=== PATIENT | male | born 1950 | race Caucasian/White ===

== ENCOUNTER → 2017-06-30 12:49 | Outpatient (CLI) | payer OTHER, SELFPAY ==
--- NOTE | 2017-06-30 12:50 | ECHOD_ITS ---
Reason For Study: Pulm. HTN Procedure This was a 2D Doppler, Color Flow transthoracic echocardiogram. Exam performed in department. Left Ventricle Normal size and thickness. The estimated ejection fraction is 65 %. Stage 2 diastolic dysfunction. Septal motion consistent with IVCD. No regional wall motion abnormalities noted. Right Ventricle Normal size and thickness. Normal systolic function. Atria The left atrium is mildly enlarged. Normal right atrium. Normal atrial septum. Mitral Valve The mitral valve is structurally normal. No prolapse or stenosis seen. Trivial mitral valve insufficiency. Tricuspid Valve Normal tricuspid valve. Trivial tricuspid valve insufficiency. Right ventricular systolic pressure estimated to be 32 mmHg. Aortic Valve Trisinus/trileaflet aortic valve. Mild diffuse aortic valve thickening. Mild aortic stenosis. Peak aortic valve gradient 21 mmHg. Mean aortic valve gradient 11 mmHg. Great Vessels Normal aortic root. Normal arch. Normal inferior vena cava. Inferior vena cava collapse with sniff. Pericardium/Pleural No pericardial effusion. MMode/2D Measurements & Calculations LVIDd: 5.1 cm IVSd: 1.2 cm LVOT diam: 2.1 cm LVIDs: 3.1 cm LVPWd: 1.1 cm LVOT area: 3.5 cm2 RVDd: 3.6 cm FS: 38.6 % Ao root diam: 3.4 cm LAV(MOD-bp): 59.5 ml LA dimension: 4.5 cm LAV(MOD-bp) Indexed: 28.2 ml/m2 LA A4 area: 20.9 cm2 LAV(MOD-sp2): 56.1 ml LAV(MOD-sp4): 59.8 ml RA A4 area: 14.9 cm2 Doppler Measurements & Calculations MV E max yefri: 81.2 cm/sec Lat Peak E' Yefri: 7.8 cm/sec Med Peak E' Yefri: 6.1 cm/sec MV A max yefri: 71.0 cm/sec E/E' lat: 10.4 E/E' med: 13.2 MV E/A: 1.1 Ao V2 max: 227.3 cm/sec LV V1 max: 105.1 cm/sec SV(LVOT): 91.3 ml Ao max P.7 mmHg LV V1 max P.4 mmHg Ao V2 mean: 159.4 cm/sec LV V1 mean P.5 mmHg Ao mean P.4 mmHg LV V1 mean: 74.8 cm/sec Ao V2 VTI: 53.1 cm LV V1 VTI: 26.2 cm LORETO(I,D): 1.7 cm2 LORETO(V,D): 1.6 cm2 PA V2 max: 105.1 cm/sec TR max yefri: 249.4 cm/sec TR max P.0 mmHg Interpretation Summary The estimated ejection fraction is 65 %. Stage 2 diastolic dysfunction. The left atrium is mildly enlarged. Trivial mitral valve insufficiency. Trivial tricuspid valve insufficiency. Right ventricular systolic pressure estimated to be 32 mmHg. Mild aortic stenosis. Compared to echo report dated 01/27/2017, no appreciable changes noted. Ordering Physician: Shankar Sears Referring Physician: Mili Talbert M.D. Performed By: Farida Boykin RDCS
== END ==
PROVIDERS: Family Provider Internal Medicine; PCP Internal Medicine; Visit Provider Internal Medicine Cardiovascular Disease
DX: I35.0 Nonrheumatic aortic (valve) stenosis (principal); I10 Essential (primary) hypertension
CPT/HCPCS: 93306

== ENCOUNTER → 2017-12-17 07:43 | Outpatient (CLI) | payer OTHER, SELFPAY ==
[2017-12-17 07:47] LABS: Bacteria 0 SEEN /hpf (None Seen); Mucous, Urine 0 SEEN /hpf (<or=2+); Red Blood Cells-Urine 0 SEEN /hpf (0-5); Squamous Epithelial Cells - UA 0 SEEN /hpf (0-5); White Blood Cells 0 SEEN /hpf (0-5)
[2017-12-17 08:27] LABS: Absolute Lymphocyte Count 2.26 X10^3/ul (0.83-4.51); Absolute Neutrophil Count 3.6 X10^3/uL (2.0-7.7); Basophil# 0.01 X10^3/uL; Basophil% 0.2 % (0-1); Eosinophil# 0.16 X10^3/uL; Eosinophils% 2.5 % (0-5); Hematocrit 45.9 % (40-54); Lymphocyte # 2.26 X10^3/ul (4.0); Lymphocyte % 34.9 % (19-41); Mean Corp Hgb Conc 34.9 g/gl (32-36); Mean Corpuscular Hgb 30.4 pg (27.0-32.0); Mean Corpuscular Volume 87.3 fL (80-94); Mean Platelet Vol. 9.5 fl (6.2-12.0); Monocyte# 0.43 X10^3/uL; Monocyte% 6.6 % (0-10); Neutrophil % 55.5 % (47-70); Platelet Count 134 K/mm3 (150-450); RBC Distribution Width SD 41.2 fl (35.1-43.9); Red Blood Count 5.26 M/mm3 (4.6-6.2); White Blood Count 6.5 K/mm3 (4.4-11.0)
[2017-12-17 08:29] LABS: POSITIVE COUNT NO; POSITIVE DIFFERENTIAL NO; POSITIVE MORPHOLOGY NO
[2017-12-17 08:33] LABS: Color, Urine Yellow (Yellow); Glucose, Dipstick 1000 mg/dl (Normal); Ketone-Dipstick Negative (Negative); Leukocyte Esterase-Dipstick Negative /ul (Negative); Nitrite-Dipstick Negative (Negative); Occult Blood-Urine 25 /ul (Negative); Protein-Dipstick Negative (Negative); Urine Bilirubin Dipstick Negative (Negative); Urine Clarity Clear (Clear); Urine Urobilinogen Normal (Normal)
[2017-12-17 08:50] LABS: Microalbumin,Random Urine 7.4 mg/L (NO RANGE EST.); Microalbumin:Creatinine Ratio 7.4 mg/g CRE (<30 mg/g CRE)
[2017-12-17 09:01] LABS: ALB/GLOB Ratio 0.9 RATIO (0.9-2.4); AST(SGOT) 9 U/L (15-37); Alanine Aminotransfer ALT/SGPT 16 U/L (16-61); Albumin, Serum 3.2 g/dL (3.2-5.0); Alkaline Phosphatase 72 U/L (45-117); Anion Gap 9 (5-15); BUN 16 mg/dL (7-18); BUN/Creat Ratio 24.6 RATIO (10-20); Calcium,Total 8.4 mg/dL (8.5-10.1); Chloride 107 mmol/L (98-107); Cholesterol 167 mg/dL (200); Creatinine, Serum 0.65 mg/dL (0.70-1.30); EST Glomerular Filtration Rate 130 mL/min (>60); Est Glom Filt Rate - Afr Amer 158 mL/min (>60); Globulin 3.5 g/dL (2.2-4.2); Glucose 121 mg/dL (74-106); High Density Lipoprotein 31 mg/dL; Potassium 4.2 mmol/L (3.5-5.1); Protein, Total 6.7 g/dL (6.4-8.2); Sodium Level 142 mmol/L (136-145); Thyroid Stim Hormone (TSH) 1.76 uIU/mL (0.358-3.74); Triglycerides 224 mg/dL; Very Low Density Lipoprotein 45 mg/dL (5-40)
[2017-12-19 10:01] LABS: Vitamin D,25 Hydroxy 47.7 ng/mL (29.95-100.01)
== END ==
PROVIDERS: Family Provider Internal Medicine; PCP Internal Medicine; Visit Provider Internal Medicine
DX: E55.9 Vitamin D deficiency, unspecified (principal); E78.5 Hyperlipidemia, unspecified; I10 Essential (primary) hypertension; E11.65 Type 2 diabetes mellitus with hyperglycemia
CPT/HCPCS: 36415; 80053; 80061; 81001; 82043; 82306; 82570; 84443; 85025

== ENCOUNTER → 2018-04-22 08:25 | Outpatient (CLI) | payer OTHER, SELFPAY ==
[2017-06-09 16:11] VITALS: BMI 30.8
[2018-04-22 08:33] LABS: Bacteria 0 SEEN /hpf (None Seen); Mucous, Urine 0 SEEN /hpf (<or=2+); Red Blood Cells-Urine 0 SEEN /hpf (0-5); Squamous Epithelial Cells - UA 0 SEEN /hpf (0-5); White Blood Cells 0 SEEN /hpf (0-5)
[2018-04-22 09:38] LABS: Color, Urine Yellow (Yellow); Glucose, Dipstick 1000 mg/dl (Normal); Ketone-Dipstick Negative (Negative); Leukocyte Esterase-Dipstick Negative /ul (Negative); Nitrite-Dipstick Negative (Negative); Occult Blood-Urine Negative /ul (Negative); Protein-Dipstick Negative (Negative); Specific Gravity, Urine 1.015 (1.002-1.030); Urine Bilirubin Dipstick Negative (Negative); Urine Clarity Clear (Clear); Urine Urobilinogen Normal (Normal)
[2018-04-22 09:40] LABS: Absolute Lymphocyte Count 2.01 X10^3/ul (0.83-4.51); Absolute Neutrophil Count 3.8 X10^3/uL (2.0-7.7); Basophil# 0.02 X10^3/uL; Basophil% 0.3 % (0-1); Eosinophil# 0.17 X10^3/uL; Eosinophils% 2.7 % (0-5); Hematocrit 46.7 % (40-54); Hemoglobin 15.7 g/dl (13.0-16.5); Lymphocyte # 2.01 X10^3/ul (4.0); Lymphocyte % 31.5 % (19-41); Mean Corp Hgb Conc 33.6 g/gl (32-36); Mean Corpuscular Hgb 29.8 pg (27.0-32.0); Mean Corpuscular Volume 88.8 fL (80-94); Mean Platelet Vol. 9.7 fl (6.2-12.0); Monocyte# 0.34 X10^3/uL; Monocyte% 5.3 % (0-10); Neutrophil # 3.81 X10^3/uL (2.7-7.7); Neutrophil % 59.7 % (47-70); Platelet Count 149 K/mm3 (150-450); RBC Distribution Width CV 12.9 % (11.6-14.6); RBC Distribution Width SD 41.1 fl (35.1-43.9); Red Blood Count 5.26 M/mm3 (4.6-6.2); White Blood Count 6.4 K/mm3 (4.4-11.0)
[2018-04-22 09:42] LABS: POSITIVE COUNT NO; POSITIVE DIFFERENTIAL NO; POSITIVE MORPHOLOGY NO
[2018-04-22 10:06] LABS: Microalbumin,Random Urine 5.9 mg/L (NO RANGE EST.); Microalbumin:Creatinine Ratio 7.3 mg/g CRE (<30 mg/g CRE)
[2018-04-22 10:37] LABS: AST(SGOT) 7 U/L (15-37); Alanine Aminotransfer ALT/SGPT 16 U/L (16-61); Albumin, Serum 3.3 g/dL (3.2-5.0); Alkaline Phosphatase 72 U/L (45-117); Anion Gap 8 (5-15); BUN 16 mg/dL (7-18); BUN/Creat Ratio 25.1 RATIO (10-20); Calcium,Total 8.3 mg/dL (8.5-10.1); Chloride 105 mmol/L (98-107); Creatinine, Serum 0.64 mg/dL (0.70-1.30); EST Glomerular Filtration Rate 133 mL/min (>60); Est Glom Filt Rate - Afr Amer 161 mL/min (>60); Globulin 3.4 g/dL (2.2-4.2); Glucose 129 mg/dL (74-106); Potassium 4.1 mmol/L (3.5-5.1); Protein, Total 6.7 g/dL (6.4-8.2); Sodium Level 140 mmol/L (136-145); Thyroid Stim Hormone (TSH) 1.32 uIU/mL (0.358-3.74)
[2018-04-22 13:20] LABS: Vitamin D,25 Hydroxy 52.7 ng/mL (29.95-100.01)
[2018-04-25 12:07] LABS: CHOLESTEROL TOTAL 172 mg/dL (100-199); HDL-C 31 mg/dL (>39); HDL-P TOTAL 23.2 umol/L (>=30.5); SMALL LDL-P 1222 nmol/L (<=527); TRIGLYCERIDES 194 mg/dL (0-149)
[2018-04-27 09:37] LABS: LDL-C 102 mg/dL (0-99)
[2018-04-27 09:38] LABS: LDL SIZE 19.9 nm (>20.5); LDL-P 1770 nmol/L (<1000); LP-IR SCORE ** 77 (<=45)
== END ==
PROVIDERS: Family Provider Internal Medicine; PCP Internal Medicine; Referring Provider Internal Medicine; Visit Provider Internal Medicine
DX: I10 Essential (primary) hypertension (principal); E55.9 Vitamin D deficiency, unspecified; E78.5 Hyperlipidemia, unspecified; E11.65 Type 2 diabetes mellitus with hyperglycemia
CPT/HCPCS: 36415; 80053; 80061; 81001; 82043; 82306; 82570; 83704; 84443; 85025

== ENCOUNTER → 2018-09-15 | Outpatient (CLI) | payer OTHER, SELFPAY ==
[2018-09-01 11:43] VITALS: BMI 31.1
--- NOTE | 2018-09-15 12:48 | STEWCON_ITS ---
Reason For Study: Pre-Operative Stress Results Protocol: Stanley Protocol Maximum Predicted HR: 153 bpm Target HR: 130 bpm % Maximum Predicted HR: 89 % DurationHeart Rate Stage (mm:ss) (bpm) BP Comment Baseline 68 158/90No Chest Pain; Diluted Definity 3 ML Given Stanley Protocol Stage I 3:00 99 166/88No Chest Pain Stanley Protocol Stage II 3:00 122 170/84No Chest Pain; Mild Dyspnea Stanley Protocol Stage III 1:30 136 / No Chest Pain; Mild to Moderate Dyspnea Recovery 79 150/82No Chest Pain Stress Duration: 7:30 mm:ss Maximum Stress HR: 136 bpm METS: 10 Baseline Echocardiogram Findings The estimated ejection fraction is 65 %. Stress Echo Wall motion Data Resting WM Intermediate WM Stress WM Resting Wall Motion Wall Motion Stress No regional wall motion No regional wall motion abnormalities noted. abnormalities noted. EKG Data The baseline ECG displays normal sinus rhythm. The patient exercised according to the regular Stanley protocol for a total duration of 7:30. The maximum heart rate attained was 137 beats per minute. This was 89% of maximum predicted heart rate. The patient exercised into stage 3 of the Stanley protocol. During stress, there were no ST or T wave changes noted to suggest ischemia. No clinical angina was noted. Interpretation Summary The estimated ejection fraction is 65 %. Normal, adequate, treadmill echocardiogram. Negative for ischemia by EKG and echocardiographic criteria. No anginal symptoms noted. Rare PVC noted. Appropriate blood pressure response to exercise. Average exercise capacity for age. Final LVEF is 75%. Test terminated due to leg discomfort. Decreased sensitivity due to poor echo windows requiring Definity enhancing agent. No complications. The study was technically difficult. Contrast injection was performed. Ordering Physician: Shankar Sears Referring Physician: Mili Talbert Performed By: Levon Emanuel RCS
== END | disposition home or self-care (01) ==
LOC: CVS 12:47
PROVIDERS: Family Provider Internal Medicine; PCP Internal Medicine; Referring Provider Internal Medicine Cardiovascular Disease; Visit Provider Internal Medicine Cardiovascular Disease
DX: Z01.810 Encounter for preprocedural cardiovascular examination (principal); R94.31 Abnormal electrocardiogram [ECG] [EKG]; I35.0 Nonrheumatic aortic (valve) stenosis; E78.5 Hyperlipidemia, unspecified; I10 Essential (primary) hypertension; G47.33 Obstructive sleep apnea (adult) (pediatric); F17.200 Nicotine dependence, unspecified, uncomplicated; E66.9 Obesity, unspecified
CPT/HCPCS: 93017; 93350; Q9957; A4216; C8928

== ENCOUNTER → 2018-09-21 | Outpatient (CLI) | payer OTHER, SELFPAY ==
[2018-09-01 11:43] VITALS: BMI 31.1
--- NOTE | 2018-09-21 13:21 | ECHOD_ITS ---
Reason For Study: PRE-OP Procedure This was a 2D Doppler, Color Flow transthoracic echocardiogram. Exam performed in department. Left Ventricle Normal size and thickness. The estimated ejection fraction is 65 %. Septal motion consistent with IVCD. Normal diastology for age. No regional wall motion abnormalities noted. Right Ventricle Mildly dilated right ventricle. Normal systolic function. Atria Normal left atrium. Normal right atrium. Normal atrial septum. Mitral Valve The mitral valve is structurally normal. No prolapse or stenosis seen. Tricuspid Valve Normal tricuspid valve. Mild (1+) tricuspid valve insufficiency. Right ventricular systolic pressure estimated to be 34 mmHg. Aortic Valve Trisinus/trileaflet aortic valve. Mild diffuse aortic valve thickening. Mild aortic stenosis. Peak aortic valve gradient 20 mmHg. Mean aortic valve gradient 10 mmHg. Calculated aortic valve area (continuity equation) is 1.3 cm2. Pulmonic Valve Normal pulmonic valve. Great Vessels Normal aortic root. Normal arch. Normal inferior vena cava. Inferior vena cava collapse with sniff. Pericardium/Pleural No pericardial effusion. MMode/2D Measurements & Calculations LVIDd: 5.2 cm IVSd: 1.1 cm LVOT diam: 2.0 cm LVIDs: 3.3 cm LVPWd: 1.2 cm LVOT area: 3.2 cm2 RVDd: 4.3 cm FS: 36.9 % Ao root diam: 3.4 cm LAV(MOD-bp): 54.4 ml Aortic Valve Planimetry: 1.3 cm2 LAV(MOD-bp) Indexed: 25.9 ml/m2 LAV(MOD-sp2): 62.0 ml LAV(MOD-sp4): 47.8 ml LA dimension(2D): 4.5 cm LA A4 area: 18.0 cm2 RA A4 area: 14.9 cm2 Time Measurements MV dec time: 0.19 sec Doppler Measurements & Calculations MV E max yefir: 86.1 cm/sec Lat Peak E' Yefri: 9.4 cm/sec Med Peak E' Yefri: 5.9 cm/sec MV A max yefri: 71.6 cm/sec E/E' lat: 9.1 E/E' med: 14.7 MV E/A: 1.2 Ao V2 max: 225.2 cm/sec LV V1 max: 84.6 cm/sec SV(LVOT): 63.6 ml Ao max P.3 mmHg LV V1 max P.9 mmHg Ao V2 mean: 154.9 cm/sec LV V1 mean P.7 mmHg Ao mean P.7 mmHg LV V1 mean: 61.7 cm/sec Ao V2 VTI: 49.5 cm LV V1 VTI: 20.0 cm LORETO(I,D): 1.3 cm2 LORETO(V,D): 1.2 cm2 TR max yefri: 258.2 cm/sec TR max P.7 mmHg Interpretation Summary The estimated ejection fraction is 65 %. Normal diastology for age. Mildly dilated right ventricle. Mild (1+) tricuspid valve insufficiency. Right ventricular systolic pressure estimated to be 34 mmHg. Mild aortic stenosis. Compared to echo report dated 06/30/17, no appreciable changes noted. Ordering Physician: Shankar Sears Referring Physician: ROXY MATHEWS Performed By: Kaci Parker RDCS, RVT
== END | disposition home or self-care (01) ==
LOC: CVS 13:20
PROVIDERS: Family Provider Internal Medicine; PCP Internal Medicine; Referring Provider Internal Medicine Cardiovascular Disease; Visit Provider Internal Medicine Cardiovascular Disease
DX: Z01.810 Encounter for preprocedural cardiovascular examination (principal); I35.0 Nonrheumatic aortic (valve) stenosis; I10 Essential (primary) hypertension; R94.31 Abnormal electrocardiogram [ECG] [EKG]
CPT/HCPCS: 93306

== ENCOUNTER → 2018-10-21 | Outpatient (CLI) | payer OTHER, SELFPAY ==
[2018-09-01 11:43] VITALS: BMI 31.1
[2018-10-21 11:01] LABS: Hematocrit 45.1 % (40-54); Hemoglobin 16.1 g/dl (13.0-16.5); Mean Corp Hgb Conc 35.7 g/gl (32-36); Mean Corpuscular Hgb 30.1 pg (27.0-32.0); Mean Corpuscular Volume 84.3 fL (80-94); Mean Platelet Vol. 9.7 fl (6.2-12.0); Platelet Count 143 K/mm3 (150-450); RBC Distribution Width CV 13.1 % (11.6-14.6); RBC Distribution Width SD 40.4 fl (35.1-43.9); Red Blood Count 5.35 M/mm3 (4.6-6.2); Scan Indicated on CBC? Y/N NO; White Blood Count 6.2 K/mm3 (4.4-11.0)
[2018-10-21 11:21] LABS: Anion Gap 5 (5-15); BUN 13 mg/dL (7-18); BUN/Creat Ratio 18.2 RATIO (10-20); Calcium,Total 8.6 mg/dL (8.5-10.1); Chloride 106 mmol/L (98-107); Creatinine, Serum 0.72 mg/dL (0.70-1.30); EST Glomerular Filtration Rate 116 mL/min (>60); Est Glom Filt Rate - Afr Amer 141 mL/min (>60); Glucose 142 mg/dL (74-106); Sodium Level 139 mmol/L (136-145)
[2018-10-21 11:28] LABS: Hemoglobin A1c 6.8 % (4.2-6.3)
== END | disposition home or self-care (01) ==
LOC: LAB 10:08
PROVIDERS: Family Provider Internal Medicine; PCP Internal Medicine; Referring Provider Physician Assistant; Visit Provider Physician Assistant
DX: Z01.818 Encounter for other preprocedural examination (principal); Z01.810 Encounter for preprocedural cardiovascular examination; E11.9 Type 2 diabetes mellitus without complications
CPT/HCPCS: 36415; 80048; 83036; 85027

== ENCOUNTER 2018-12-22 05:41 | Emergency (ER) | payer OTHER, SELFPAY ==
[2018-09-01 11:43] VITALS: BMI 31.1
[2018-12-22 05:42] VITALS: BP 173/94; PULSE 62; RESP 17; TEMP 36.6; O2SAT 93; BMI 31.3
[2018-12-22 06:01] LABS: Bedside Glucose 163 mg/dL (70-110)
--- NOTE | 2018-12-22 06:04 | EKG12_ITS ---
Test Reason : DYSRHYTHMIA Blood Pressure : / mmHG Vent. Rate : 062 BPM Atrial Rate : 062 BPM P-R Int : 162 ms QRS Dur : 154 ms QT Int : 472 ms P-R-T Axes : 041 -66 -03 degrees QTc Int : 479 ms Normal sinus rhythm Left axis deviation Right bundle branch block Abnormal ECG Confirmed by YUE CHIN, ADALBERTO ([id number]), image editor LYNDSAY KINSEY ([id number]) on 12/26/2018 12:09:46 PM Referred By: ARDEN Confirmed By:JOSE RAUL TURNER MD
--- NOTE | 2018-12-22 06:04 | CT_ITS ---
STUDY: CT BRAIN WITHOUT CONTRAST REASON FOR EXAM: Male, 68 years old. DIZZINESS AND NAUSEA THIS AM RADIATION DOSAGE (If Supplied By Facility): CTDIvol = ( 44.99 ) mGy, DLP = ( 779.24 ) mGycm TECHNIQUE: Transaxial CT imaging of the brain was performed without administration of intravenous contrast material. Individualized dose optimization techniques were used for this CT. COMPARISON: No relevant priors. FINDINGS: Normal soft tissue structures. Normal calvarium. Normal size ventricles and extra-axial spaces for the patient's age. Normal white matter tracts of the cerebral hemispheres. Normal basal ganglia and thalami. Normal brainstem. Normal cerebellum. There is no intracranial hemorrhage. There are no findings of an acute ischemic infarction. Normal visualized paranasal sinuses. CT/Brain/Head without Contrast IMPRESSION: Normal unenhanced CT scan of the brain. Electronically Signed: Tobias Lewis, at 6:29 EDT Tel , Service support ,
--- NOTE | 2018-12-22 06:04 | ED.VIS.GEN ---
History of Present Illness Chief Complaint: Dizziness Narrative: Patient is a 68-year-old male who presents with dizziness. Symptoms just began this morning a couple of hours ago. He states he feels like the room is spinning and had difficulty walking because of this. He also reports nausea without vomiting. He denies any headache chest pain difficulty breathing. He denies any near syncope. No other neurological symptoms such as slurred speech or speech difficulty, numbness tingling or weakness in the extremities. He has no history of prior similar symptoms. He did have a recent URI-like illness with congestion and rhinorrhea about 1 week ago. No visual changes. No tinnitus. Has history of coronary disease or stroke but does have a history of diabetes, hypertension, hyperlipidemia. Past Medical History - Allergies and Home Meds Allergies/Adverse Reactions: Allergies No Known Allergies Allergy (Verified 12/22/18 05:47) Primary Care Physician: Mili Talbert DO [Primary Care Provider] - Past Medical History: - - Diabetes, hypertension, hyperlipidemia Smoking Status: Current every day smoker Review of Systems All systems negative except as indicated General: Denies: Fever Cardiovascular: Denies: Chest pain Respiratory: Denies: Dyspnea Gastrointestinal: Reports: Nausea. Denies: Abdominal pain, Vomiting Neurological: Reports: - - Vertigo. Denies: Headache Physical Exam Vital Signs/Narrative: Vital Signs Temp Pulse Resp BP Pulse Ox 12/22/18 05:42 97.9 F 62 17 173/94 H 93 Inital Vital Signs reviewed: Yes General: Well nourished, Well developed Head: Normocephalic, Atraumatic Eyes: Perrl, EOMI, - - No nystagmus ENT: Moist mucous membranes Neck: Supple Cardiovascular: Regular rate, Regular rhythm Respiratory: No distress, CTA bilaterally Abdomen: Soft, Nontender Skin: Normal color Neurological: Alert, Oriented x3, Normal Strength, Normal Sensation, - - No focal or lateralizing neurological deficits normal strength normal sensation no ataxia Psychological: Normal affect Diagnostic/Tx/Re-eval - Medical Decision Making Work-up as above unremarkable with normal labs and negative CT. Patient was treated here with meclizine. On ambulation he feels much better and was able to ambulate without difficulty. His presentation is most suggestive of peripheral vertigo. He was given a prescription for Antivert. He understands to return for new or worsening symptoms. All questions answered bedside. Patient discharged. ED Disposition - Plan for ED Patient: Disposition: Home or Assisted Living Diagnosis: Vertigo Instructions: VERTIGO, Unspecified Prescriptions: Meclizine HCl [Antivert] 25 mg PO 4X/DAY PRN PRN #20 tab PRN Reason: Dizziness Prescription Printed Referrals: Mili Talbert DO [Primary Care Provider] -
[2018-12-22] MEDS: Meclizine HCl 25 MG Tablet PO (06:15)
[2018-12-22 06:19] LABS: Absolute Neutrophil Count 3.9 X10^3/uL (2.0-7.7); Basophil# 0.02 X10^3/uL; Basophil% 0.3 % (0-1); Eosinophil# 0.13 X10^3/uL; Hematocrit 47.1 % (40-54); Hemoglobin 16.3 g/dL (13.0-16.5); Lymphocyte % 29.8 % (19-41); Mean Corp Hgb Conc 34.6 g/dL (32-36); Mean Corpuscular Hgb 30.3 pg (27.0-32.0); Mean Corpuscular Volume 87.5 fL (80-94); Mean Platelet Vol. 9.3 fl (6.2-12.0); Monocyte% 6.3 % (0-10); NRBC Flagged by Analyzer 0 % (0-5); Neutrophil # 3.88 X10^3/uL (2.7-7.7); Neutrophil % 60.8 % (47-70); Platelet Count 143 K/mm3 (150-450); RBC Distribution Width CV 12.5 % (11.6-14.6); RBC Distribution Width SD 39.7 fl (35.1-43.9); Red Blood Count 5.38 M/mm3 (4.6-6.2); White Blood Count 6.4 K/mm3 (4.4-11.0)
[2018-12-22 06:35] LABS: Anion Gap 7 (5-15); BUN 19 mg/dL (7-18); Calcium,Total 8.9 mg/dL (8.5-10.1); Chloride 105 mmol/L (98-107); Creatinine, Serum 0.76 mg/dL (0.70-1.30); EST Glomerular Filtration Rate 109 mL/min (>60); Est Glom Filt Rate - Afr Amer 132 mL/min (>60); Estimated Creatinine Clearance 71.68 ml/min; Glucose 153 mg/dL (74-106); Sodium Level 139 mmol/L (136-145)
[2018-12-22 06:55] VITALS: BP 139/77; PULSE 56; RESP 18; O2SAT 96
== END 2018-12-22 07:00 | disposition home or self-care (01) ==
PROVIDERS: Emergency Provider Emergency Medicine; Family Provider Internal Medicine; PCP Internal Medicine
DX: R42 Dizziness and giddiness (principal); E11.9 Type 2 diabetes mellitus without complications; I10 Essential (primary) hypertension; E78.5 Hyperlipidemia, unspecified; Z79.82 Long term (current) use of aspirin; Z79.84 Long term (current) use of oral hypoglycemic drugs; Z79.899 Other long term (current) drug therapy; F17.200 Nicotine dependence, unspecified, uncomplicated
CPT/HCPCS: 70450; 80048; 82962; 84484; 85025; 93005; 99284

== ENCOUNTER 2019-01-05 09:30 | Outpatient (RCR) | payer OTHER, SELFPAY ==
--- NOTE | 2018-12-27 09:21 | HP.PTEVAL_ITS ---
Patient's Visit Information MARIBEL RAMIREZ is a 68 year old M referred to Physical Therapy by Mili Talbert DO with a diagnosis of BPV. Date of Evaluation: 12/27/18 Physical Therapist: Kishor García, SHAMART, OCS, CSCS - Visit Plan Frequency: 1x/Week Duration: 4-6 Weeks Plan: weekly x 4-6 as needed for progression of adapataion and habituation ex. - Subjective Findings: Got dizzy last Tuesday morning upon waking at 4:30 and spinning and nauseous. Could not walk. Went to ER. Catscan was clear. They said he had an inner ear infection. Put on meds for dizzyness meclizine. Takes it as needed. Took it over the weekend . [place] Tuesday morning until an hour of work and his head felt wierd and he went to Dr. Talbert after leaving work. Off work now days to a month. 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 Sleeping well now. 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 Stopped and sat and got better. Worked 45 minutes at a time. Feels normal in between episodes. Balance is good, no falls and feels pretty steady unless turns too quick. - Objective Walk and trasnfers I and good. - B hallpike mason, - roll test. c/s aROM WFL and without pain. UE AROM WFL. Oculomotor: no nystagmus with gaze or head shake. - skew eye deviation. - ocular tilt. normal convergence. pursuit adn saccades normal, slight symptoms with saccades. VOR horiz 30 sec 5/10 symptoms for 3-4 minutes. - head thrust B - Balance Scores Functional Gait Assessment Score: 30 % Disability: 0 CATSIB Score (Max score 120 seconds): 120 - Goals Goal 1:: Patient feel 100% back to normal at homewith out dizzyness. 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 Rehabilitation Potential: Good - Anticipated Interventions Patient/Client Instruction: Educate patient on: Condition, Plan of Care For the Purpose of:: To increase tolerance to activity/condition/position, To improve ability of physical actions for home/community/work/leisure Comment: adaptation and habituation For the Purpose of:: To increase tolerance to activity/condition/position, To improve ability of physical actions for home/community/work/leisure Thank you for the opportunity to evaluate your patient. For Medicare and Medicare HMO plans, please review the plan of care and approve it. It will need to be FAXED BACK to us at [phone] for Medicare purposes. For Medicare only, by signing this I certify the plan of care. Please let me know if there are questions or concerns regarding this plan of care. Physician Signature: Date:
--- NOTE | 2019-02-16 15:02 | HP.PT.NRP ---
HP - Discharge Summary (1) - Patient Information MARIBEL RAMIREZ was seen in my office for initial evaluation on 12/27/18. The following Plan of Care was established for this patient: Initial Frequency: 1x/Week Initial Duration: 4-6 Weeks - Anticipated Interventions Patient/Client Instruction: Educate patient on: Condition, Plan of Care For the Purpose of:: To increase tolerance to activity/condition/position, To improve ability of physical actions for home/community/work/leisure For the Purpose of:: To increase tolerance to activity/condition/position, To improve ability of physical actions for home/community/work/leisure This patient was last seen in our office 01/05/19. Pertinent comments regarding their Physical therapy will appear below: Pt seen 2 visits for positional vertigo treatment and was 80% better!He was to f/u two weeks later to ensure progress but neglected to attend or schedule. At this point, it has been over 5 weeks adn I will discontinue due to nonattendance. At this point I will be discontinuing this patient from physical therapy. I would be happy to see this patient again in the future if found appropriate by the physician. Thank you! Kishor García, DPT, OCS, CSCS
== END 2019-01-05 19:00 | disposition home or self-care (01) ==
LOC: PT 09:30
PROVIDERS: Family Provider Internal Medicine; PCP Internal Medicine; Referring Provider Internal Medicine; Visit Provider Internal Medicine
DX: H81.10 Benign paroxysmal vertigo, unspecified ear (principal)
CPT/HCPCS: 97162; 97530

== ENCOUNTER → 2019-11-17 07:04 | Outpatient (CLI) | payer BC, SELFPAY ==
[2019-11-17 07:14] LABS: Bacteria 0 SEEN /hpf (None Seen); Mucous, Urine 0 SEEN /hpf (<or=2+); Red Blood Cells-Urine 0 SEEN /hpf (0-5); Squamous Epithelial Cells - UA 0 SEEN /hpf (0-5); White Blood Cells 0 SEEN /hpf (0-5)
[2019-11-17 07:51] LABS: Absolute Lymphocyte Count 2.24 X10^3/uL (0.83-4.51); Absolute Neutrophil Count 3.7 X10^3/uL (2.0-7.7); Basophil# 0.02 X10^3/uL; Basophil% 0.3 % (0-1); Eosinophil# 0.18 X10^3/uL; Eosinophils% 2.7 % (0-5); Hematocrit 47.2 % (40-54); Lymphocyte # 2.24 X10^3/ul (4.0); Mean Corp Hgb Conc 33.9 g/dL (32-36); Mean Corpuscular Hgb 30.2 pg (27.0-32.0); Mean Corpuscular Volume 89.2 fL (80-94); Mean Platelet Vol. 9.8 fl (6.2-12.0); Monocyte# 0.45 X10^3/uL; Monocyte% 6.8 % (0-10); NRBC Flagged by Analyzer 0 % (0-5); Neutrophil # 3.66 X10^3/uL (2.7-7.7); Neutrophil % 55.7 % (47-70); Platelet Count 150 K/mm3 (150-450); RBC Distribution Width CV 12.7 % (11.6-14.6); RBC Distribution Width SD 41.6 fl (35.1-43.9); Red Blood Count 5.29 M/mm3 (4.6-6.2); White Blood Count 6.6 K/mm3 (4.4-11.0)
[2019-11-17 08:16] LABS: Microalbumin,Random Urine 5.6 mg/L (NO RANGE EST.); Microalbumin:Creatinine Ratio 6.4 mg/g CRE (<30 mg/g CRE)
[2019-11-17 08:20] LABS: Color, Urine Yellow (Yellow); Glucose, Dipstick 1000 mg/dl (Normal); Ketone-Dipstick Negative (Negative); Leukocyte Esterase-Dipstick Negative /ul (Negative); Nitrite-Dipstick Negative (Negative); Occult Blood-Urine 10 /ul (Negative); Protein-Dipstick Negative (Negative); Specific Gravity, Urine 1.015 (1.002-1.030); Urine Bilirubin Dipstick Negative (Negative); Urine Clarity Clear (Clear); Urine Urobilinogen Normal (Normal); Urine pH 6.5 (5.0 - 8.0)
[2019-11-17 08:32] LABS: AST(SGOT) 10 U/L (15-37); Alanine Aminotransfer ALT/SGPT 18 U/L (16-61); Albumin, Serum 3.5 g/dL (3.2-5.0); Alkaline Phosphatase 72 U/L (45-117); Anion Gap 3 (5-15); BUN 17 mg/dL (7-18); BUN/Creat Ratio 24.1 RATIO (10-20); Calcium,Total 8.7 mg/dL (8.5-10.1); Chloride 103 mmol/L (98-107); Cholesterol 192 mg/dL (200); EST Glomerular Filtration Rate 118 mL/min (>60); Est Glom Filt Rate - Afr Amer 143 mL/min (>60); Globulin 3.5 g/dL (2.2-4.2); Glucose 154 mg/dL (74-106); High Density Lipoprotein 34 mg/dL; PSA,Total - Annual Screen 1.17 ng/mL (0.00-4.00); Potassium 4.1 mmol/L (3.5-5.1); Sodium Level 138 mmol/L (136-145); Thyroid Stim Hormone (TSH) 1.91 uIU/mL (0.358-3.74); Triglycerides 247 mg/dL; Very Low Density Lipoprotein 49 mg/dL (5-40)
[2019-11-19 10:31] LABS: Vitamin D,25 Hydroxy 59.4 ng/mL
== END ==
PROVIDERS: PCP Internal Medicine; Referring Provider Internal Medicine; Visit Provider Internal Medicine
DX: E55.9 Vitamin D deficiency, unspecified (principal); E78.5 Hyperlipidemia, unspecified; I10 Essential (primary) hypertension; Z12.5 Encounter for screening for malignant neoplasm of prostate
CPT/HCPCS: 36415; 80053; 80061; 81001; 82043; 82306; 82570; 84153; 84443; 85025; G0103

== ENCOUNTER → 2020-06-28 08:26 | Outpatient (CLI) | payer BC, SELFPAY ==
[2020-06-28 08:41] LABS: Bacteria 0 SEEN /hpf (None Seen); Mucous, Urine 0 SEEN /hpf (<or=2+); Red Blood Cells-Urine 0 SEEN /hpf (0-5); Squamous Epithelial Cells - UA 0 SEEN /hpf (0-5); White Blood Cells 0 SEEN /hpf (0-5)
[2020-06-28 09:14] LABS: Color, Urine Yellow (Yellow); Glucose, Dipstick 1000 mg/dl (Normal); Ketone-Dipstick Negative (Negative); Leukocyte Esterase-Dipstick Negative /ul (Negative); Nitrite-Dipstick Negative (Negative); Occult Blood-Urine 25 /ul (Negative); Protein-Dipstick Negative (Negative); Urine Bilirubin Dipstick Negative (Negative); Urine Clarity Clear (Clear); Urine Urobilinogen Normal (Normal)
[2020-06-28 09:21] LABS: Absolute Lymphocyte Count 2.13 X10^3/uL (0.83-4.51); Absolute Neutrophil Count 3.5 X10^3/uL (2.0-7.7); Basophil# 0.02 X10^3/uL; Basophil% 0.3 % (0-1); Eosinophil# 0.14 X10^3/uL; Eosinophils% 2.2 % (0-5); Hematocrit 48.3 % (40-54); Hemoglobin 16.5 g/dL (13.0-16.5); Lymphocyte # 2.13 X10^3/ul (4.0); Lymphocyte % 33.9 % (19-41); Mean Corp Hgb Conc 34.2 g/dL (32-36); Mean Corpuscular Hgb 30.3 pg (27.0-32.0); Mean Corpuscular Volume 88.6 fL (80-94); Mean Platelet Vol. 9.7 fl (6.2-12.0); Monocyte# 0.42 X10^3/uL; Monocyte% 6.7 % (0-10); NRBC Flagged by Analyzer 0 % (0-5); Neutrophil # 3.52 X10^3/uL (2.7-7.7); Neutrophil % 56.1 % (47-70); Platelet Count 156 K/mm3 (150-450); RBC Distribution Width CV 12.7 % (11.6-14.6); RBC Distribution Width SD 41.3 fl (35.1-43.9); Red Blood Count 5.45 M/mm3 (4.6-6.2); White Blood Count 6.3 K/mm3 (4.4-11.0)
[2020-06-28 09:41] LABS: AST(SGOT) 6 U/L (15-37); Alanine Aminotransfer ALT/SGPT 15 U/L (16-61); Albumin, Serum 3.4 g/dL (3.2-5.0); Alkaline Phosphatase 71 U/L (45-117); Anion Gap 3 (5-15); BUN 16 mg/dL (7-18); BUN/Creat Ratio 20.9 RATIO (10-20); Calcium,Total 8.6 mg/dL (8.5-10.1); Chloride 106 mmol/L (98-107); Cholesterol 186 mg/dL (200); Creatinine, Serum 0.77 mg/dL (0.70-1.30); EST Glomerular Filtration Rate 107 mL/min (>60); Est Glom Filt Rate - Afr Amer 130 mL/min (>60); Globulin 3.5 g/dL (2.2-4.2); Glucose 135 mg/dL (74-106); High Density Lipoprotein 35 mg/dL; Microalbumin,Random Urine 18.9 mg/L (NO RANGE EST.); Microalbumin:Creatinine Ratio 12.7 mg/g CRE (<30 mg/g CRE); Potassium 4.2 mmol/L (3.5-5.1); Protein, Total 6.9 g/dL (6.4-8.2); Sodium Level 140 mmol/L (136-145); Triglycerides 171 mg/dL; Very Low Density Lipoprotein 34 mg/dL (5-40)
[2020-06-30 09:34] LABS: Vitamin D,25 Hydroxy 46.8 ng/mL
== END ==
PROVIDERS: PCP Internal Medicine; Referring Provider Internal Medicine; Visit Provider Internal Medicine
DX: I10 Essential (primary) hypertension (principal); E55.9 Vitamin D deficiency, unspecified; E78.5 Hyperlipidemia, unspecified
CPT/HCPCS: 36415; 80053; 80061; 81001; 82043; 82306; 82570; 85025

== ENCOUNTER → 2020-12-27 10:00 | Outpatient (CLI) | payer BC, SELFPAY ==
[2020-12-27 10:20] LABS: Bacteria 0 SEEN /hpf (None Seen); Mucous, Urine 0 SEEN /hpf (<or=2+); Red Blood Cells-Urine 0 SEEN /hpf (0-5); White Blood Cells 0 SEEN /hpf (0-5)
[2020-12-27 10:39] LABS: Absolute Lymphocyte Count 1.81 X10^3/uL (0.83-4.51); Absolute Neutrophil Count 3.1 X10^3/uL (2.0-7.7); Basophil# 0.01 X10^3/uL; Basophil% 0.2 % (0-1); Eosinophil# 0.14 X10^3/uL; Eosinophils% 2.5 % (0-5); Hematocrit 45.6 % (40-54); Hemoglobin 15.5 g/dL (13.0-16.5); Lymphocyte # 1.81 X10^3/ul (0.83-4.51); Lymphocyte % 32.8 % (19-41); Mean Corpuscular Hgb 30.6 pg (27.0-32.0); Mean Corpuscular Volume 90.1 fL (80-94); Mean Platelet Vol. 9.4 fl (6.2-12.0); Monocyte% 7.3 % (0-10); NRBC Flagged by Analyzer 0 % (0-5); Neutrophil # 3.12 X10^3/uL (2.7-7.7); Neutrophil % 56.7 % (47-70); Platelet Count 147 K/mm3 (150-450); RBC Distribution Width CV 12.8 % (11.6-14.6); RBC Distribution Width SD 42.2 fl (35.1-43.9); Red Blood Count 5.06 M/mm3 (4.6-6.2); White Blood Count 5.5 K/mm3 (4.4-11.0)
[2020-12-27 10:44] LABS: Color, Urine Yellow (Yellow); Glucose, Dipstick 1000 mg/dl (Normal); Ketone-Dipstick Negative (Negative); Leukocyte Esterase-Dipstick Negative /ul (Negative); Nitrite-Dipstick Negative (Negative); Occult Blood-Urine Negative /ul (Negative); Protein-Dipstick Negative (Negative); Urine Bilirubin Dipstick Negative (Negative); Urine Clarity Clear (Clear); Urine Urobilinogen Normal (Normal)
[2020-12-27 10:53] LABS: Squamous Epithelial Cells - UA 0-5 SEEN /hpf (0-5)
[2020-12-27 11:02] LABS: Microalbumin,Random Urine 5.1 mg/L (NO RANGE EST.); Microalbumin:Creatinine Ratio 6.5 mg/g CRE (<30 mg/g CRE)
[2020-12-27 11:17] LABS: ALB/GLOB Ratio 0.9 RATIO (0.9-2.4); AST(SGOT) 10 U/L (15-37); Alanine Aminotransfer ALT/SGPT 17 U/L (16-61); Albumin, Serum 3.2 g/dL (3.2-5.0); Alkaline Phosphatase 66 U/L (45-117); Anion Gap 5 (5-15); BUN 19 mg/dL (7-18); BUN/Creat Ratio 27.3 RATIO (10-20); Calcium,Total 8.5 mg/dL (8.5-10.1); Chloride 106 mmol/L (98-107); Cholesterol 166 mg/dL (200); EST Glomerular Filtration Rate 119 mL/min (>60); Est Glom Filt Rate - Afr Amer 144 mL/min (>60); Globulin 3.7 g/dL (2.2-4.2); Glucose 141 mg/dL (74-106); High Density Lipoprotein 34 mg/dL; Potassium 4.2 mmol/L (3.5-5.1); Protein, Total 6.9 g/dL (6.4-8.2); Sodium Level 138 mmol/L (136-145); Thyroid Stim Hormone (TSH) 1.24 uIU/mL (0.358-3.74); Triglycerides 182 mg/dL; Very Low Density Lipoprotein 36 mg/dL (5-40)
[2020-12-29 08:31] LABS: Vitamin D,25 Hydroxy 62.6 ng/mL
== END ==
PROVIDERS: PCP Internal Medicine; Visit Provider Internal Medicine
DX: I10 Essential (primary) hypertension (principal); E55.9 Vitamin D deficiency, unspecified; E11.9 Type 2 diabetes mellitus without complications
CPT/HCPCS: 36415; 80053; 80061; 81001; 82043; 82306; 82570; 84443; 85025

== ENCOUNTER → 2021-03-11 16:36 | Outpatient (CLI) | payer BC, SELFPAY ==
--- NOTE | 2021-03-11 16:42 | RAD_ITS ---
STUDY: X-RAY - LEFT FOOT CLINICAL: Male, 70 years old. left foot swelling, neuropathy/diabetic TECHNIQUE: 3 view(s) of the foot. COMPARISON: None. FINDINGS: Normal talus, calcaneus, and tarsal bones. A moderate-sized plantar calcaneal spur is present. Mild cortical spurring is seen at the dorsum and medial aspect of the navicular bone with mild overlying soft tissue swelling. Normal visualized subtalar, talonavicular, calcaneocuboid, tarsal and tarsometatarsal articulations. Normal metatarsi. Normal metatarsophalangeal joint of the great toe. Normal tibial and fibular sesamoid bones. Normal interphalangeal joint of the great toe. Normal phalanges of the great toe. Normal second through fifth metatarsophalangeal joints. Normal interphalangeal joints and phalanges of the lesser toes. There is no demonstrated fracture. RAD/Foot min 3 Views IMPRESSION: 1. A moderate-sized plantar calcaneal spur is present. 2. Mild cortical spurring is seen at the dorsum and medial aspect of the navicular bone with mild overlying soft tissue swelling. Electronically Signed: Dennis Clements MD at 19:08 EST , Service support ,
== END ==
PROVIDERS: PCP Internal Medicine; Visit Provider Podiatrist
DX: M84.375A Stress fracture, left foot, initial encounter for fracture (principal)
CPT/HCPCS: 73630

== ENCOUNTER 2021-05-27 16:30 | Outpatient (RCR) | payer BC, SELFPAY ==
--- NOTE | 2021-05-04 18:05 | HP.PTEVAL ---
Patient's Visit Information MARIBEL RAMIREZ is a 70 year old M referred to Physical Therapy by Dr. Mili Mathews DO with a diagnosis of R SCIATICA. Date of Evaluation: 05/04/21 Physical Therapist: Violet Whittington PT, Cert MDT - Visit Plan Frequency: 2-3x /Week Duration: 4-6 Weeks Plan: US X 6 TO RIGHT LB/HIP REGION, POSTURE CORRECTION/STRENGTHENING, INSTRUCTION IN APPROPRIATE BODY MECHANICS AND ACTIVITY MODIFICATIONS. DLS STARTING WITH A NEUTRAL SPINE PROGRESSING ROM TOLERATED. ERIC LE ROM, STRETCHING AND STRENGTHENING. HEP INSTRUCTION. 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 WORKED 8 HOURS TODAY BEFORE THIS LEO'T. 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 Present symptoms: RIGHT LOW BACK, R BUTTOCK, GROIN AREA, THIGH, AND LEG PAIN. IT HURTS ESPECIALLY IN THE GROIN. (NUMBNESS AND TINGLING ERIC FEET FOR A FEW YEARS THAT PATIENT RELATES TO HIS DM - NEUROPATHY). Present since: ABOUT 5 WEEKS AGO. Pain Scale: WORST 5/10, LEAST 1-2/10. Currently: 1-2/10. GETTING WORSE. GETTING HARDER TO DO JOB ESPECIALLY SINCE LAST TUESDAY. IT REALLY WEARS ME OUT AND I REALLY HAVE TO FAVOR MY LEG. Commenced as a result of: NO APPARENT REASON. Symptoms at onset: LOW BACK PAIN. Worse: WALKING ON RIGHT LE, TWISTING R LEG QUICK - I REALLY HAVE TO BE CAREFUL. LYING DOWN WITH R LEG STRAIGHT. Better: SITTING. Disturbed sleep: YES. HASN'T BEEN ABLE TO SLEEP IN THE BED MUCH LATELY. HAS TO SIT UP ON THE COUCH LEANING TO THE RIGHT AND PUTTING LEGS UP TO THE SIDE. Previous history/Previous treatment: H/O RIGHT SCIATICA ABOUT 3 YEARS AGO THAT RESOLVED WITH A FEW MASSAGES. NO BACK SURGERY. NO BACK INJECTIONS. H/O CHIROPRACTIC TREATMENTS LAST JAN 2021 EVEN THOUGH HE WASN'T HAVING PAIN AT THE TIME BUT TOOK A TREATMENT ANYWAY BECAUSE [place] WAS IN THE [place]OD. NO OTHER HISTORY OF CHIROPRACTIC TREATMENTS. H/O MASSAGE FOR THE LAST THREE YEARS OR SO. NO HIP SURGERIES. Treatment this episode: CALLED DR. MATHEWS LAST TUESDAY WHEN IT WAS GETTING WORSE AND SHE SAID TO TAKE TYLONOL AND ORDERED PT. Coughing/sneezing/straining: NEGATIVE. Gait: PAINFUL TO WALK. LIMPS ON RIGHT LE. Difficulty initiating urination: PATIENT DENIES ANY NEW PROBLEMS WITH BOWEL OR BLADDER CONTROL. NO LOSS OF BOWEL CONTROL. Accidents: NO. Unexplained weight loss: NO. Imaging: RECENT RIGHT HIP AND LUMBAR X-RAYS: STUDY: X-RAY - PELVIS AND RIGHT HIP. REASON FOR EXAM: Male, 70 years old. Hip Pain. TECHNIQUE: 3 views of the pelvis and hip. COMPARISON: None. . FINDINGS: There is a non-specific bowel gas pattern. Normal visualized soft tissue. structures. There degenerative changes of the lumbar spine. Normal bilateral iliac wings, sacroiliac joints and visualized sacrum. Normal bilateral superior and inferior pubic rami. Normal pubic symphysis. Normal bilateral ischial tuberosities. Degenerative changes of the left. hip noted. There are osteoarthritic changes of the femoral head with marginal. osteophyte formation. There is osteoarthritic spur formation of the. acetabular rim. There is moderate articular joint space narrowing of the. hip. Ossific densities inferior to the right hip measure up to 2.4 cm. . RAD/HIP, UNI W/ Pelvis 2-3 Views. IMPRESSION: 1. Moderate osteoarthrosis of the right hip. 2. Old avulsion fragments, myositis ossificans or intra-articular loose. bodies. . Electronically Signed: Bob Ayala MD ([place]). at 11:20 EST. STUDY: X-RAY - LUMBAR SPINE. REASON FOR EXAM: Male, 70 years old. Low back pain. TECHNIQUE: 3 view(s) of the lumbar spine were obtained. COMPARISON: None. . FINDINGS: Normal lumbar lordosis. There is no substantial scoliosis. There is a. normal alignment of the vertebrae. There is multilevel endplate spondylosis of the lumbar vertebrae. There is. multi-level degenerative disc disease with multi-level disc space. narrowing. There is no demonstrated fracture. There is atherosclerotic calcification of the abdominal aorta without a. demonstrated aneurysm. . RAD/Lumbar Spine 2 or 3 Views. IMPRESSION: Degenerative changes of the spine, as detailed above. . Electronically Signed: Stephan Oviedo MD. at 15:42 EST. PMH/Recent major surgery: NIDDM, ERIC FOOT NEUROPATHY, HTN, ANXIETY. R RCR ABOUT 2 YEARS AGO. L RCR ABOUT 5 YEARS AGO. OTHER: REPORTS HIS MASSAGE THERAPIST TAUGHT HIM SOME EX'S TO DO BUT HE IS HAVING TOO MUCH PAIN TO DO THEM. PATIENT DESCRIBES SUPINE BENDING AND TWISTING TYPE EX'S THAT THE MASSAGE THERAPIST WAS DOING TO HIM. - Objective Sitting/Standing Posture: POOR. Lordosis: NORMAL TO INCREASED. Lateral shift: NO. Relevant shift: N/A. Active Correction of posture: NE. Other Observations: INDEP TRANSFERS SIT TO STAND WITHOUT UE ASSIST. INDEP GAIT INTO PT WITHOUT ANY ASSISTIVE DEVICES BUT LIMPING ON RIGHT LE. Motor deficit: LLE 5/5. RIGHT HIP 4-/5, KNEE EXT 5/5, KNEE FLEX 5/5, ANKLE 5/5. Sensory deficit: ERIC LE LIGHT TOUCH SENSATION INTACT AND SYMMETRICAL EXCEPT PATIENT REPORTS SOME TINGLING WITH TESTING OF RIGHT ANTERIOR THIGH COMPARED TO LEFT. ROM deficit: TIGHT ERIC HIP IR'S AND HIP FLEXORS. ERIC TIGHT HS'S RIGHT > LEFT. Reflexes: UNABLE TO ELICIT ERIC LE DTR'S. Dural Signs: POSITIVE RIGHT LE. Lumbar mvmt loss: flex - MIN. ext - SALOMON. R SG - MOD TO SALOMON. L SG - MOD TO SALOMON. Core strength: POOR. Palpation: NO ACUTE LUMBAR, SACRAL OR HIP TENDERNESS EXCEPT RIGHT LATERAL AND ANTERIOR HIP REGION. INCREASED M. TONE ERIC PARASPINALS. TREATMENT: NEUROMUSCULAR REEDUCATION - RETRAINING OF MVMT AND POSTURE FOR SITTING, LYING AND STANDING ACTIVITIES. - Balance/Special Test Scores Oswestry Low Back Score: 10 - Goals Goal 1:: DECREASE C/O LOW BACK AND RIGHT LE SX'S. Goal Time Frame: 4-6 Weeks Goal 2:: IMPROVE WALKING, LIFTING, SITTING, STANDING, SOCIAL LIFE, AND WORK FUNCTION. Goal Time Frame: 4-6 Weeks Goal 3:: INSTRUCT IN PROPHYLAXIS Goal Time Frame: 4-6 Weeks - Anticipated Interventions Patient/Client Instruction: Educate patient on: Condition, Plan of Care, Risk Factors For the Purpose of:: To improve self management Therapeutic Exercise to Include: Strength training, Body mechanics, Postural training, Flexibilty training, Gait and locomotor training, Neuromotor development, Dynamic Lumbar Stabilization For the Purpose of:: To decrease pain, To improve muscle performance and motor function, To increase tolerance to activity/condition/position, To improve ability of physical actions for home/community/work/leisure, To improve gait and locomotor functions Thank you for the opportunity to evaluate your patient. For Medicare and Medicare HMO plans, please review the plan of care and approve it. It will need to be FAXED BACK to us at [phone] for Medicare purposes. For Medicare only, by signing this I certify the plan of care. Please let me know if there are questions or concerns regarding this plan of care. Physician Signature: Date:
== END 2021-05-27 19:00 | disposition home or self-care (01) ==
LOC: PT 16:30
PROVIDERS: PCP Internal Medicine; Referring Provider Internal Medicine; Visit Provider Internal Medicine
DX: M54.31 Sciatica, right side (principal)
CPT/HCPCS: 97035; 97110; 97112; 97162

== ENCOUNTER 2021-07-11 07:18 | Outpatient (CLI) | payer BC, SELFPAY ==
[2021-07-11 07:30] LABS: Bacteria 0 SEEN /hpf (None Seen); Mucous, Urine 0 SEEN /hpf (<or=2+); Red Blood Cells-Urine 0 SEEN /hpf (0-5); Squamous Epithelial Cells - UA 0 SEEN /hpf (0-5); White Blood Cells 0 SEEN /hpf (0-5)
[2021-07-11 08:28] LABS: Absolute Lymphocyte Count 2.16 X10^3/uL (0.83-4.51); Absolute Neutrophil Count 2.9 X10^3/uL (2.0-7.7); Basophil# 0.02 X10^3/uL; Basophil% 0.4 % (0-1); Eosinophil# 0.11 X10^3/uL; Eosinophils% 1.9 % (0-5); Lymphocyte # 2.16 X10^3/ul (0.83-4.51); Lymphocyte % 38.1 % (19-41); Mean Corpuscular Hgb 29.5 pg (27.0-32.0); Mean Corpuscular Volume 86.7 fL (80-94); Mean Platelet Vol. 9.7 fl (6.2-12.0); Monocyte# 0.45 X10^3/uL; Monocyte% 7.9 % (0-10); NRBC Flagged by Analyzer 0 % (0-5); Neutrophil # 2.89 X10^3/uL (2.7-7.7); Platelet Count 164 K/mm3 (150-450); RBC Distribution Width CV 13.1 % (11.6-14.6); RBC Distribution Width SD 40.8 fl (35.1-43.9); Red Blood Count 5.42 M/mm3 (4.6-6.2); White Blood Count 5.7 K/mm3 (4.4-11.0)
[2021-07-11 08:42] LABS: Color, Urine Yellow (Yellow); Glucose, Dipstick 1000 mg/dl (Normal); Ketone-Dipstick Negative (Negative); Leukocyte Esterase-Dipstick Negative /ul (Negative); Nitrite-Dipstick Negative (Negative); Occult Blood-Urine 10 /ul (Negative); Protein-Dipstick Negative (Negative); Urine Bilirubin Dipstick Negative (Negative); Urine Clarity Clear (Clear); Urine Urobilinogen Normal (Normal)
[2021-07-11 08:59] LABS: ALB/GLOB Ratio 0.9 RATIO (0.9-2.4); AST(SGOT) 9 U/L (15-37); Alanine Aminotransfer ALT/SGPT 15 U/L (16-61); Albumin, Serum 3.5 g/dL (3.2-5.0); Alkaline Phosphatase 74 U/L (45-117); Anion Gap 4 (5-15); BUN 18 mg/dL (7-18); BUN/Creat Ratio 22.3 RATIO (10-20); Calcium,Total 9.1 mg/dL (8.5-10.1); Chloride 105 mmol/L (98-107); Cholesterol 212 mg/dL (200); Creatinine, Serum 0.81 mg/dL (0.70-1.30); EST Glomerular Filtration Rate 101 mL/min (>60); Est Glom Filt Rate - Afr Amer 122 mL/min (>60); Globulin 3.7 g/dL (2.2-4.2); Glucose 144 mg/dL (74-106); High Density Lipoprotein 37 mg/dL; Potassium 4.5 mmol/L (3.5-5.1); Protein, Total 7.2 g/dL (6.4-8.2); Sodium Level 138 mmol/L (136-145); Thyroid Stim Hormone (TSH) 2.41 uIU/mL (0.358-3.74); Triglycerides 255 mg/dL; Very Low Density Lipoprotein 51 mg/dL (5-40)
[2021-07-11 09:00] LABS: Microalbumin,Random Urine 6.8 mg/L (NO RANGE EST.); Microalbumin:Creatinine Ratio 10.8 mg/g CRE (<30 mg/g CRE)
[2021-07-13 08:47] LABS: Vitamin D,25 Hydroxy 49.2 ng/mL
== END 2021-07-11 23:59 | disposition home or self-care (01) ==
PROVIDERS: PCP Internal Medicine; Referring Provider Internal Medicine; Visit Provider Internal Medicine
DX: I10 Essential (primary) hypertension (principal); E11.9 Type 2 diabetes mellitus without complications; E78.5 Hyperlipidemia, unspecified; E55.9 Vitamin D deficiency, unspecified
CPT/HCPCS: 36415; 80053; 80061; 81001; 82043; 82306; 82570; 84443; 85025

== ENCOUNTER → 2021-09-09 | Outpatient (CLI) | payer BC, SELFPAY ==
--- NOTE | 2021-09-09 13:24 | CT_ITS ---
STUDY: CT SCAN OR EXTREMITY RIGHT REASON FOR EXAM: Male, 71 years old. RT HIP OSTEOARTHRITIS. YUSUF protocol. RADIATION DOSAGE (If Supplied By Facility): CTDIvol = ( 13.42 ) mGy, DLP = ( 1904.38 ) mGycm. Individualized dose optimization techniques were used for this CT.? TECHNIQUE: Multiple axial tomographic images of the right hip and right knee were obtained without intravenous contrast administration. Coronal and sagittal reconstruction were obtained as well. COMPARISON: None. FINDINGS: Marked degree of joint space narrowing of the right hip joint with subchondral geodes of the acetabulum. There is evidence of a degenerative spur formation along the superior and inferior aspect of the right femoral head. Moderate degree of joint space narrowing with degenerative spur formation of the left femoral head. Incidental note is made of prostatic calcifications. Sigmoid diverticulosis. Atherosclerotic plaque formation of the abdominal aorta and common iliac arteries. Mild degree of joint space narrowing of the medial compartments of both knee joints. CT/Extremity Lower without Contra IMPRESSION: Moderate degree of joint space narrowing of the right hip joint with subchondral geodes of the acetabulum as well as degenerative spur formation of the femoral head and Moderate degree of osteoarthritis and joint space narrowing of the left hip joint. Electronically Signed: Milton Barry MD at 13:48 EDT ,
== END | disposition home or self-care (01) ==
LOC: CT 13:08
PROVIDERS: PCP Internal Medicine; Visit Provider Student in an Organized Health Care Education/Training Program
DX: M16.11 Unilateral primary osteoarthritis, right hip (principal)
CPT/HCPCS: 73700

== ENCOUNTER 2021-09-17 17:05 | Observation (INO) | payer BC, MEDICARE, SELFPAY ==
--- NOTE | 2021-09-08 09:13 | EKG12_ITS ---
Test Reason : PREOP Blood Pressure : / mmHG Vent. Rate : 059 BPM Atrial Rate : 059 BPM P-R Int : 174 ms QRS Dur : 146 ms QT Int : 460 ms P-R-T Axes : 034 -24 -22 degrees QTc Int : 455 ms Sinus bradycardia Right bundle branch block Abnormal ECG Confirmed by SARAH CHIN, LAINE ([id number]), book or script editor BRIDGETTE MC ([id number]) on 09/08/2021 1:28:11 PM Referred By: Zen Harper Confirmed By:LAINE SMITH MD
--- NOTE | 2021-09-08 09:20 | RAD_ITS ---
STUDY: XR Chest 2 Views 09/08/2021 9:23 AM REASON FOR EXAM: Male, 71 years old. CHEST PAIN PREOP COMPARISON: 07/15/2012 TECHNIQUE: XR Chest 2 Views FINDINGS: There is no demonstrated pleural abnormality. Normal heart size. Normal mediastinum. Normal abram. Prominent appearing increased interstitial lung markings. Normal visualized pulmonary arteries. There is atherosclerotic calcification of the aortic arch with tortuosity. There are diffuse degenerative changes of the visualized thoracic spine. There is degenerative osteoarthritis of the bilateral shoulders. There is no demonstrated abnormality of the visualized soft tissue structures of the upper abdomen. RAD/Chest PA and Lateral IMPRESSION: There are no acute findings. Electronically Signed: Miguel Ángel Gamez MD at 17:39 EDT ,
[2021-09-08 09:52] LABS: Absolute Lymphocyte Count 1.68 X10^3/uL (0.83-4.51); Absolute Neutrophil Count 4.3 X10^3/uL (2.0-7.7); Basophil# 0.02 X10^3/uL; Basophil% 0.3 % (0-1); Eosinophils% 1.5 % (0-5); Hematocrit 44.3 % (40-54); Hemoglobin 15.1 g/dL (13.0-16.5); Lymphocyte # 1.68 X10^3/ul (0.83-4.51); Lymphocyte % 25.1 % (19-41); Mean Corp Hgb Conc 34.1 g/dL (32-36); Mean Corpuscular Hgb 29.9 pg (27.0-32.0); Mean Corpuscular Volume 87.7 fL (80-94); Mean Platelet Vol. 9.6 fl (6.2-12.0); Monocyte# 0.51 X10^3/uL; Monocyte% 7.6 % (0-10); NRBC Flagged by Analyzer 0 % (0-5); Neutrophil # 4.33 X10^3/uL (2.7-7.7); Neutrophil % 64.6 % (47-70); Platelet Count 162 K/mm3 (150-450); RBC Distribution Width SD 41.2 fl (35.1-43.9); Red Blood Count 5.05 M/mm3 (4.6-6.2); White Blood Count 6.7 K/mm3 (4.4-11.0)
[2021-09-08 10:13] LABS: Magnesium 2.2 mg/dL (1.6-2.6)
[2021-09-08 10:16] LABS: Anion Gap 7 (5-15); BUN 20 mg/dL (7-18); BUN/Creat Ratio 24.6 RATIO (10-20); Calcium,Total 9.4 mg/dL (8.5-10.1); Chloride 106 mmol/L (98-107); Creatinine, Serum 0.81 mg/dL (0.70-1.30); EST Glomerular Filtration Rate 100 mL/min (>60); Est Glom Filt Rate - Afr Amer 121 mL/min (>60); Glucose 148 mg/dL (74-106); Potassium 4.1 mmol/L (3.5-5.1); Sodium Level 138 mmol/L (136-145)
[2021-09-08 10:25] LABS: Hemoglobin A1c 6.2 % (3.8-5.6)
[2021-09-17] VITALS (9 sets, daily range): BP systolic 123–159; BP diastolic 54–85; PULSE 56–65; RESP 16; TEMP 36.2–36.9; O2SAT 95–100; BMI 32.2; BMI 32.8
--- NOTE | 2021-09-17 | HIP_PTH ---
PATIENT: MARIBEL RAMIREZ LOC: MS3 U#:[id number] AGE/SX: 71/M [place] [facility] [place]: Dr. Zen Harper DO : 1950 BED: 1 DIS: 09/18/2021 SPEC #: [id number] RECD: 09/17/21 07:19 STATUS: MONIKA RETodd #: [id number] KIAN: 09/17/21 00:[address]: Zen Harper DEPT: SURGICAL PATHOLOGY RECD BY: Raheel Roa ENTERED: 09/18/21 08:11 SP TYPE: TOTAL HIP OTHR DR: MD Dr. Mili Liriano DO Dr. Mark Tereletsky, DO Dr. Nicholas F Kotsonis, MD Tissues: Hip, NOS Procedures: Decalcification bone/plaque Surgery Specimen Level IV HEADER OPERATION: ERAS, robotic total hip PRE-OP DIAGNOSIS: Osteoarthritis TISSUE SUBMITTED: Right hip ? femoral head, bone and tissue MICROSCOPIC DIAGNOSIS Bone and tissue of right hip, total hip resection: Severe degenerative joint disease. AM:henok 09/23/2021 MICROSCOPIC DESCRIPTION Slides are reviewed. GROSS DESCRIPTION Received is one container labeled with the patient's name and designated right femoral head bone and tissue. The specimen consists of a perez femoral head with portion of femoral neck. The femoral head measures 4.5 x 5 x 5 cm and the femoral neck measures up to 1 cm in length. The articular surface displays prominent osteophyte formation, eburnation and bone erosion. Also present in the specimen container are multiple irregular fragments of bone reamings measuring in aggregate 4 x 4 x 1 cm. Machine Operator Packaging sections are submitted in two cassettes after decalcification as follows: 1 - bone reamings, 2 - femoral head. / SJ:henok 09/18/2021 TC:5 CPT: 34423, 76334
[2021-09-17] MEDS: Lactated Ringers 1,000 ML 999 ML IV ×2 (08:38→14:30)
[2021-09-17] MEDS: Gabapentin 600 MG Tablet PO (08:39)
[2021-09-17] MEDS: Acetaminophen 500 MG Tablet 1000 MG PO ×3 (08:39→21:41)
[2021-09-17] MEDS: Celecoxib 200 MG Capsule 400 MG PO (08:39)
[2021-09-17 08:45] LABS: Bedside Glucose 136 mg/dL (74-106)
[2021-09-17] MEDS: Lactated Ringers 1,000 ML 75 ML IV ×2 (11:00→11:45)
[2021-09-17] MEDS: Cefazolin 2 GM in 0.9% Normal Saline 100 ML IV (11:10)
[2021-09-17] MEDS: TXA 1000mg in NS100 100ml (IVPB at Incision) 660 MG IV (11:15)
[2021-09-17] MEDS: dexAMETHasone 10 MG/ML Vial IV (11:15)
[2021-09-17] MEDS: TXA 1000mg in NS100 100ml (IVPB at Closure) 660 MG IV (13:26)
--- NOTE | 2021-09-17 13:53 | RAD_ITS ---
STUDY: X-RAY - PELVIS AND RIGHT HIP REASON FOR EXAM: Male, 71 years old. Post Op -- AP both hips on single sydney/lateral of op hip PACU TECHNIQUE: XR Hip Unilateral with Pelvis when performed; 2-3 Views COMPARISON: None. FINDINGS: There is no fracture or dislocation. There is anatomic alignment. The soft tissue planes are preserved. Total hip arthroplasty. There is an air-fluid level seen in the operative site. Joint space is preserved. Subcutaneous air is noted. RAD/Hip Min 2 Views (Portable) IMPRESSION: Successful total hip arthroplasty. Electronically Signed: Miguel Ángel Gamez MD at 16:50 EDT ,
--- NOTE | 2021-09-17 13:59 | PCM.OPRPT ---
Report of Operation Date of Procedure: 09/17/21 Description of Surgical Findings:: Preoperative diagnosis: Right hip primary osteoarthritis Postoperative diagnosis: Right hip primary osteoarthritis Procedure: Robotic assisted right total hip arthroplasty Surgeon: Zen Harper DO Assembler Skylights: Jaclyn Christy PA-C Anesthesia: General endotracheal Bale Stacker: Lg Carrasquillo CRNA Complications: None apparent Drains: None Estimated blood loss: 300 cc Urinary output: none recorded IV fluids: 1500 cc crystalloid Specimens: Femoral head Surgical implants: Newton Hamilton Accolade two 127 degree neck angle hip stem size #3, Biolox delta ceramic V 40 femoral head 36 mm outer diameter +7.5 mm neck length, Denice Trident X3 10 degree polyethylene insert, Trident 2 TriTanium cluster hole acetabular shell 58 mm diameter Indications: This is an 71-year-old male seen in the outpatient setting for right hip pain. X-rays revealed severe right hip osteoarthritis. A corticosteroid intra-articular injection was attempted approximately 5 months ago. Patient noted short-term relief, but pain quickly returned. He failed oral [id number] analgesics including NSAIDs and Tylenol, activity modification. I recommended surgical intervention the form of right total hip arthroplasty. I reviewed the procedure with the patient, its risk, benefits, alternatives. Risks included but were not limited to bleeding, infection, loss of life or limb, risk of anesthesia, neurovascular injury, persistent pain, instability, need for additional surgery, failure of orthopedic hardware, loosening, osteolysis, need for assistive devices long-term, leg length discrepancy. Patient expressed understanding wish to proceed with surgery. Description of procedure: I greeted the patient in same-day surgery holding area the day of surgery. He was identified by name, medical record number, and date of . All questions were answered to patient satisfaction. The operative extremity was marked with a surgical marker. Informed consent was confirmed with the patient. Patient underwent spinal anesthetic in the PACU prior to the procedure. At time of his procedure, patient brought the operative suite and positioned supine initially on a standard operating table. Gentle MAC anesthesia was administered. Patient was then positioned in a lateral decubitus position with the right side up. An axillary roll was placed under the patient's left axilla. The left fibular head was free. We then prepped and draped the right lower extremity in normal, sterile orthopedic fashion. Prior to the procedure, the Cj plan was reviewed and appeared appropriate based on the patient's CT scan and anatomy. We performed a timeout with all parties in attendance in agreement with the side, site, and operation to be performed. No concerns were voiced and would like to proceed. 1 g TXA IV as well as 2 g Ancef was administered prior to the incision by anesthesia staff. 1 g TXA IV was administered at time of closure additionally. I first elected to place our pelvic array with a curvilinear incision over the iliac crest just posterior to the ASIS. I bluntly dissected down the level of the periosteum. I then drilled 3 intracortical pins with excellent cortical purchase. Pelvic array was then assembled and positioned appropriately. I then turned my attention to the hip. A standard posterior lateral incision was made curvilinear over the posterior lateral hip, centered on the tip of the greater trochanter. Full-thickness skin incision was made, approximately 12 cm in length. I sharply dissected down the level of the fascia melly. Fascia melly was then incised in line with the incision. I bluntly dissected through the raphae of the gluteus edwin. Femoral checkpoint was placed at this point. We then registered her femoral anatomy prior to dislocating the hip. I then internally rotated the hip. Limited gluteal bursectomy was performed to identify the short external rotators. A Cobra retractor was placed in his gluteus medius. Short external rotators were taken down with Bovie cautery and tagged for later repair with #2 Ethibond suture. This identified the underlying capsule. A hockey-stick shaped capsulotomy was made over the femoral neck carried posteriorly to the acetabular labrum. Labrum was released and the hip was dislocated. I then marked a standard femoral neck cut 1 fingerbreadth above the lesser trochanter. Sagittal saw was used to carefully cut the femoral neck. Femoral head was removed and examined and appeared benign. It was sent to pathology per hospital policy. I then turned my attention to the acetabulum. Cobra retractors were placed anterior and posteriorly. Self-retaining retractor was placed superiorly. Acetabular labrum was excised with a long handled knife. Acetabular pulmonary was excised with Bovie cautery. Hemostasis was excellent at this point. I then registered the acetabulum with the [employer] robot successfully. I then brought in the [employer] robot with the acetabular reaming arm to a size 58. This was reamed and the planned position to the planned depth. Reamer was then removed. There was excellent bleeding bone at the base and excellent remaining anterior posterior man of the acetabulum. 58 mm acetabular component was selected for and attached to the monument carver arm of the robot. I placed the acetabular component near planned position before attaching to the robot. The robot then held the cuff in position while I impacted it to an appropriate depth. The acetabular cup was then removed from the robotic arm. It had excellent rim fit. I then selected a 10 degree posterior lipped liner and impacted this per client relations representative recommendations. I then turned my attention to the femur. Box chisel was then utilized to gain access to the femoral canal. Canal finder was placed. Sequential broaches were used and press-fit manner. A final size 3 achieved excellent vertical and rotational stability. We then trialed with a 127 degree hip stem as templated. A +5 and +7.5 mm neck length were trialed. The +7. 5 mm neck achieved greater stability as well as allowed some lengthening of the limb, which was desired given his contralateral hip osteoarthritis. Trials were then removed. We copiously irrigated the wound with normal saline solution, Betadine solution, and irrisept solution. A size 3 stem was then impacted with excellent fixation. Final head was then impacted over clean, dry Ariza taper neck. Final reduction was performed. A posterior capsular repair was performed with #2 Ethibond suture and bone tunnels, as well as the short external rotator repair. Femoral checkpoint was removed. Pelvic array pins were removed. IT band was closed watertight with #1 strata fix suture. Deeper fascial layers were closed with 0 Vicryl suture in interrupted fashion. Subcutaneous layers were reapproximated with 2-0 Vicryl suture and skin reapproximated with running subcuticular 3-0 strata fix and skin glue. Pelvic array incision was closed with buried 2-0 Vicryl suture and skin glue.. A silver dressing was applied. Patient tolerated procedure well without complication. He was positioned back in the supine position on his hospital bed. He was transferred to PACU in stable condition. A pillow was placed between the patient's leg to be present while he is in bed. Need for skilled librarian assistant: Jaclyn Christy PA-C was critical to the outcome of the case. During the course of the procedure the physician librarian assistant played a vital role. Her intimate knowledge of my steps in the procedure aided in safe and expedient completion of the procedure. The PA played a vital role in positioning particularly in obtaining the appropriate positioning. The PA was also vital in the retraction of soft tissues during the exposure and projecting vital structures. The PA was also vital and protecting soft tissues during times of bony cuts. She also played a vital role in closure with my direct supervision. The PA was also important during reduction and dislocation of the joint and trials intraoperatively. Post Operative Plan: Patient will be placed in observation overnight given his multiple comorbidities and advanced age. Plan for discharge to home likely tomorrow. Weightbearing: Weightbearing as tolerated right lower extremity, posterior hip precautions. Pillows between legs while in bed Antibiotics: Ancef 1 g every 8 hours x 3 doses DVT Prophylaxis: Aspirin 81 mg twice daily to start tomorrow [place]: None Dressing: Maintain silver dressing x 5 days X-Rays: PACU x-rays were reviewed demonstrated well-positioned right total hip arthroplasty implant. Follow-up 2-week x-rays in the office. Follow-up: 2 weeks in my office as scheduled
[2021-09-17] MEDS: Lactated Ringers 1,000 ML 125 ML IV (16:10)
[2021-09-17] MEDS: Celecoxib 200 MG Capsule PO ×2 (16:11→21:40)
[2021-09-17] MEDS: Famotidine 20 MG Tablet PO (16:12)
[2021-09-17] MEDS: Senna/Docusate Sodium 1 Tablet 2 TABLET PO ×2 (16:12→21:41)
--- NOTE | 2021-09-17 16:46 | PCM.PN.HOSP ---
Subjective Subjective Patient was seen and examined today at request of orthopedic surgery, he underwent a robotic right hip replacement today, I saw him in PACU today and he had no complaints of shortness of breath, chest discomfort, or severe pain. 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 There is a history in the patient's medical record of obstructive sleep apnea, patient does not have a CPAP at home and he does not recall being told he has sleep apnea. Patient's medications were reviewed by this examiner. Objective Data Objective Data Vital Signs: Vital Signs Temp Pulse Resp BP Pulse Ox 97.5 F L 57 L 16 134/80 H 98 09/17/21 15:30 09/17/21 15:30 09/17/21 15:30 09/17/21 15:30 09/17/21 15:30 Oxygen Flow Rate (L/min) 4 Oxygen Delivery Method Nasal Cannula Weight: 100.8 kg Body Mass Index (BMI) 32.8 Intake & Output: Intake and Output for Last 24 Hours 09/15/21 09/16/21 09/17/21 23:59 23:59 23:59 Intake Total 4432 / 4432 Balance 4432 / 4432 Lab / Micro Data Result Diagrams: 09/08/21 09:33 09/08/21 09:33 Labs: Laboratory Results - last 24 hr 09/17/21 08:12: POC Glucose 136 H Micro: Microbiology 09/08/21 09:33 Swab (Method) Nasal Screen MRSA/MSSA - Final Physical Exam Const alert, oriented x3, no apparent distress, healthy appearing and well nourished Constitutional Narrative: Patient appears younger than stated age General Appearance: cooperative, well kempt and well developed Orientation / Consciousness: awake, oriented to person, oriented to place and oriented to time HEENT normocephalic and moist oral mucous membranes Eyes PERRL, EOMs intact bilaterally and conjunctivae normal Neck nuchal rigidity, supple, no JVD, thyroid normal and no carotid bruits General: trachea midline Resp normal respiratory effort, no retractions, no use of accessory muscles and clear to auscultation bilaterally Auscultation: Negative for rales, rhonchi or wheezes Cardio regular rate, regular rhythm, S1 normal heart sound, S2 normal heart sound, no murmurs, no rub, no gallops and no clicks GI normal to inspection, nondistended, normoactive bowel sounds, soft to palpation, non-tender and non-distended Extremity no clubbing, cyanosis or edema Skin skin turgor normal General Skin Exam: no breakdown Neuro oriented x3, CN's II-XII intact bilaterally, no focal motor deficits and no sensory deficits noted Sensorium / Orientation: awake and alert Speech: speech normal Psych affect normal Assessment & Plan Assessment/Plan (1) Type 2 diabetes mellitus without complications: PLAN: 1. 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
[2021-09-17] MEDS: metFORMIN HCl 500 MG Tablet PO (18:28)
[2021-09-17] MEDS: Glimepiride 1 MG Tablet PO (18:30)
[2021-09-17] MEDS: Cefazolin 1 GM/50 ML BAG IV (18:31)
[2021-09-17 18:35] LABS: Bedside Glucose 226 mg/dL (74-106)
[2021-09-17] MEDS: cloNIDine HCl 0.1 MG Tablet PO (21:39)
[2021-09-17] MEDS: Metoprolol(XL)Succ 100 MG Tablet PO (21:43)
[2021-09-17 21:55] LABS: Bedside Glucose 209 mg/dL (74-106)
[2021-09-17] MEDS: Insulin Lispro 100 UNIT/ML INSULN.PEN SC (22:15)
[2021-09-18] MEDS: Cefazolin 1 GM/50 ML BAG IV (03:25)
[2021-09-18 03:30] VITALS: BMI 32.8
[2021-09-18 03:33] VITALS: BP 112/76; PULSE 55; RESP 16; TEMP 36.4; O2SAT 97
[2021-09-18 05:51] LABS: Hematocrit 35.6 % (40-54); Hemoglobin 12.1 g/dL (13.0-16.5); Mean Corpuscular Hgb 29.4 pg (27.0-32.0); Mean Corpuscular Volume 86.4 fL (80-94); Mean Platelet Vol. 9.7 fl (6.2-12.0); Platelet Count 150 K/mm3 (150-450); RBC Distribution Width SD 40.2 fl (35.1-43.9); Red Blood Count 4.12 M/mm3 (4.6-6.2); White Blood Count 9.3 K/mm3 (4.4-11.0)
[2021-09-18 06:11] LABS: Anion Gap 6 (5-15); BUN 17 mg/dL (7-18); BUN/Creat Ratio 22.2 RATIO (10-20); Calcium,Total 8.4 mg/dL (8.5-10.1); Chloride 103 mmol/L (98-107); Creatinine, Serum 0.76 mg/dL (0.70-1.30); EST Glomerular Filtration Rate 107 mL/min (>60); Est Glom Filt Rate - Afr Amer 129 mL/min (>60); Estimated Creatinine Clearance 68.74 ml/min; Glucose 147 mg/dL (74-106); Potassium 3.9 mmol/L (3.5-5.1); Sodium Level 136 mmol/L (136-145)
[2021-09-18] MEDS: Acetaminophen 500 MG Tablet 1000 MG PO ×2 (06:22→13:38)
[2021-09-18 06:40] LABS: Bedside Glucose 140 mg/dL (74-106)
[2021-09-18 07:16] VITALS: O2SAT 96
--- NOTE | 2021-09-18 07:55 | PCM.DC.SUM ---
Providers Date of Admission: 09/17/21 Primary Care Physician: Dr. Mili Talbert, Consultations 09/17/21 13:52 Consult: Hospitalist Routine Consulting Provider: Adalberto Oh Reason for Consult: Post-op KRISTIN medical mangement EMERGENT Consult: No MD Notified: Yes Date Notified: 09/17/21 Time Notified: 13:55 Method of Notification: Verbal Reason For Visit: RT TOTAL HIP ARTHROPLASTY Diagnosis Discharge Diagnosis (1) Type 2 diabetes mellitus without complications: Status: Chronic Code(s): E11.9 - Type 2 diabetes mellitus without complications Plan: POD#1 s/p right robotic assisted KRISTIN - Pain control - Medicine following for medical management - PT/OT -posterior hip precautions - DVT PPX -early mobilization, SCDs, CRYSTAL rosario, aspirin 81 mg twice daily -Discharge home today Medications at Discharge Home Medications aspirin 81 mg tablet,delayed release 81 mg PO .daily tab 06/09/17 benazepril 40 mg tablet 40 mg PO QDAY 06/09/17 citalopram 20 mg tablet 20 mg PO QDAY 06/09/17 clonidine HCl 0.1 mg tablet 0.1 mg PO BID tab 06/09/17 metoprolol succinate 100 mg tablet,extended release 24 hr 100 mg PO BID tab 06/09/17 spironolactone 25 mg tablet 25 mg PO QDAY 06/09/17 cholecalciferol (vitamin D3) 25 mcg (1,000 unit) capsule 1,000 unit PO DAILY 09/01/18 empagliflozin 25 mg tablet 25 mg PO DAILY 09/01/18 metformin 500 mg tablet 500 mg PO BID tab 09/01/18 sitagliptin 100 mg tablet 100 mg PO DAILY 09/01/18 glimepiride 1 mg PO QHS 09/04/21 glimepiride 2 mg PO DAILY 09/04/21 amlodipine [Norvasc] 2.5 mg PO DAILY 09/17/21 Hospital Course Summary of Care Provided Minutes Spent on Discharge: 15 Hospital Course: Patient underwent uncomplicated right robotic assisted total hip arthroplasty 09/17/2021. Physical and Occupational Therapy were consulted as well as internal medicine for medical management. No surgical or medical complications were encountered throughout his stay. His pain was well controlled postoperative day #1. He denies any fevers, chills, nausea vomiting, chest pain or shortness of breath. He worked well with therapies. He was able be safely discharged to home on postoperative day #1. Physical Exam Narrative General - A&Ox3, NAD. VSS/AF Right lower extremity -incisional dressing C/D/I. SILT Sural, Saphenous, SPN, DPN, Tibial N. distributions. DP, PT 2+. BCR. DF, PF, EHL 5/5. No calf TTP. Weight / BMI Weight Weight: 222 lb 3.615 oz Body Mass Index (BMI) 32.8 ABG / Lab / Microbiology Data Result Diagrams: 09/18/21 04:45 09/18/21 04:45 Laboratory: Laboratory Results - last 24 hr 09/17/21 08:12: POC Glucose 136 H 09/17/21 18:26: POC Glucose 226 H 09/17/21 21:36: POC Glucose 209 H 09/18/21 04:45: WBC 9.3, RBC 4.12 L, Hgb 12.1 L, Hct 35.6 L, MCV 86.4, MCH 29.4, MCHC 34.0, RDW Std Deviation 40.2, RDW Coeff of Caitlin 13.0, Plt Count 150, MPV 9.7 09/18/21 04:45: Sodium 136, Potassium 3.9, Chloride 103, Carbon Dioxide 27.0, Anion Gap 6, BUN 17, Creatinine 0.76, Estim Creat Clear Calc 68.74, Est GFR (MDRD) Af Amer 129, Est GFR (MDRD) Non-Af 107, BUN/Creatinine Ratio 22.2 H, Glucose 147 H, Calcium 8.4 L 09/18/21 06:19: POC Glucose 140 H Microbiology: Microbiology 09/08/21 09:33 Swab (Method) Nasal Screen MRSA/MSSA - Final Radiography Diagnostic Testing: Radiology Impression Hip X-Ray 09/17/21 13:53 IMPRESSION: Successful total hip arthroplasty. Electronically Signed: Miguel Ángel Gamez MD at 16:50 EDT , Meaningful Use Info Meaningful Use Diagnoses (Choose all that apply): None applicable Discharge Plan Admission Admit Date/Time: 09/17/21 17:05 Primary Reason for Your Visit: Right total hip replacement Attending Provider: Zen Harper Primary Care Provider: Mili Talbert Consulting Providers: Kishor Cueto ; Adlaberto Oh ; Zen Blackwell Instructions Additional Instructions / Restrictions: Follow preprinted instructions from your surgeons office. Discharge Orders/Prescriptions Prescriptions: Continued metoprolol succinate 100 mg tablet extended release 24 hr 100 mg PO BID RF: 0 aspirin [Adult Aspirin Regimen] 81 mg tablet,delayed release (DR/EC) 81 mg PO .daily RF: 0 benazepril 40 mg tablet 40 mg PO QDAY RF: 0 citalopram [Celexa] 20 mg tablet 20 mg PO QDAY RF: 0 clonidine HCl 0.1 mg tablet 0.1 mg PO BID RF: 0 spironolactone 25 mg tablet 25 mg PO QDAY RF: 0 metformin 500 mg tablet 500 mg PO BID RF: 0 cholecalciferol (vitamin D3) 1,000 unit capsule 1,000 unit capsule 1,000 unit PO DAILY RF: 0 Januvia 100 mg tablet 100 mg PO DAILY RF: 0 Jardiance 25 mg tablet 25 mg PO DAILY RF: 0 glimepiride 2 mg Tablet 1 mg PO QHS RF: 0 glimepiride 2 mg Tablet 2 mg PO DAILY RF: 0 amlodipine [Norvasc] 2.5 mg Tablet 2.5 mg PO DAILY RF: 0 Referrals / Follow Up: Mili Talbert DO [Primary Care Provider] - Zen Harper DO [STAFF PHYSICIAN] - Within 2 Weeks Disposition Disposition (needs filled in before D/C Order can be placed): Home, Self Care
--- NOTE | 2021-09-18 07:57 | PCM.DC ---
Discharge Instructions Follow Up Care Test Results: Test results from this visit will be discussed in further detail at your follow-up appointment, if applicable. Discharge Plan Admission Admit Date/Time: 09/17/21 17:05 Primary Reason for Your Visit: Right total hip replacement Attending Provider: Zen Harper Primary Care Provider: Mili Talbert Consulting Providers: Kishor Cueto ; Adalberto Oh ; Zen Blackwell Instructions Additional Instructions / Restrictions: Follow preprinted instructions from your surgeons office. Discharge Orders/Prescriptions Prescriptions: Continued metoprolol succinate 100 mg tablet extended release 24 hr 100 mg PO BID RF: 0 aspirin [Adult Aspirin Regimen] 81 mg tablet,delayed release (DR/EC) 81 mg PO .daily RF: 0 benazepril 40 mg tablet 40 mg PO QDAY RF: 0 citalopram [Celexa] 20 mg tablet 20 mg PO QDAY RF: 0 clonidine HCl 0.1 mg tablet 0.1 mg PO BID RF: 0 spironolactone 25 mg tablet 25 mg PO QDAY RF: 0 metformin 500 mg tablet 500 mg PO BID RF: 0 cholecalciferol (vitamin D3) 1,000 unit capsule 1,000 unit capsule 1,000 unit PO DAILY RF: 0 Januvia 100 mg tablet 100 mg PO DAILY RF: 0 Jardiance 25 mg tablet 25 mg PO DAILY RF: 0 glimepiride 2 mg Tablet 1 mg PO QHS RF: 0 glimepiride 2 mg Tablet 2 mg PO DAILY RF: 0 amlodipine [Norvasc] 2.5 mg Tablet 2.5 mg PO DAILY RF: 0 Referrals / Follow Up: Mili Talbert DO [Primary Care Provider] - Zen Harper DO [STAFF PHYSICIAN] - Within 2 Weeks Disposition Disposition (needs filled in before D/C Order can be placed): Home, Self Care
[2021-09-18 08:34] VITALS: O2SAT 96
[2021-09-18] MEDS: amLODIPine 2.5 MG Tablet PO (08:34)
[2021-09-18] MEDS: Lisinopril 40 MG Tablet PO (08:35)
[2021-09-18] MEDS: Senna/Docusate Sodium 1 Tablet 2 TABLET PO (08:35)
[2021-09-18] MEDS: Aspirin 81 MG TAB.CHEW PO (08:35)
[2021-09-18] MEDS: Glimepiride 2 MG Tablet PO (08:35)
[2021-09-18] MEDS: LINAGLIPTIN 5 MG TABLET PO (08:35)
[2021-09-18] MEDS: metFORMIN HCl 500 MG Tablet PO (08:35)
[2021-09-18] MEDS: cloNIDine HCl 0.1 MG Tablet PO (08:35)
[2021-09-18] MEDS: Citalopram 20 MG Tablet PO (08:35)
[2021-09-18] MEDS: Spironolactone 25 MG Tablet PO (08:36)
[2021-09-18] MEDS: Empagliflozin 25 MG Tablet PO (08:36)
[2021-09-18] MEDS: Famotidine 20 MG Tablet PO (08:36)
[2021-09-18 08:37] VITALS: PULSE 60
[2021-09-18] MEDS: Metoprolol(XL)Succ 100 MG Tablet PO (08:37)
[2021-09-18 08:40] VITALS: BP 129/77; PULSE 61; RESP 18; TEMP 36.6; O2SAT 98; BMI 32.8
--- NOTE | 2021-09-18 09:35 | CASEMGMT ---
ABI ASIF Face to Face with patient for initial transition planning/care coordination assessment. RN LAYA introduced self and role at [facility]. Patient sitting in chair, alert and oriented. Patient willing to participate in assessment and is able to answer all questions appropriately. Care providers, pharmacy, and demographics verified. Patient wishes to discharge home and is setup with [facility] for outpatient therapy. Patient states he has no further needs or concerns at this time. CM to follow for discharge planning needs that may arise. PCP: Gali Specialists: Meredith Rousseau Pharmacy: [facility] Mor[facility] Insurance: [employer] Prescription Benefit: yes Living Will/HPOA: yes, Kwame Brown Jr Son LNOK: , son, daughter Living Arrangements: Patient lives with in a 2 story home with bed and bath on first floor. 2 steps and railing to enter the home. Patient states he was independent at home prior to surgery Transportation: [facility] Van DME/HHC: Patient states he has walker, hip kit, and raised toilet at home. Patient is setup for outpatient therapy at [facility] starting Tuesday at 9am Disposition Plan: Patient to discharge home with outpatient therapy, family support, and follow-up plans in place. Daniela AGUDELO, RN, CM
--- NOTE | 2021-09-18 10:43 | PCM.PN.HOSP ---
Documented by User: Maxime HUMMEL 09/18/21 10:50 Subjective Subjective Patient is a 71-year-old male comfortably resting in bed, alert and orient x3. Patient reports feeling well and denies development of any new symptoms overnight. Does not appear in acute distress. Objective Data Objective Data Vital Signs: Vital Signs Temp Pulse Resp BP Pulse Ox 97.9 F 61 18 129/77 H 98 09/18/21 08:40 09/18/21 08:40 09/18/21 08:40 09/18/21 08:40 09/18/21 08:40 Oxygen Flow Rate (L/min) 4 Oxygen Delivery Method Room Air Weight: 222 lb 3.615 oz Body Mass Index (BMI) 32.8 Intake & Output: Intake and Output for Last 24 Hours 09/16/21 09/17/21 09/18/21 23:59 23:59 23:59 Intake Total 4836.17 / 4836.17 242.5 / 242.5 Output Total 175 / 450 275 / 275 Balance 4661.17 / 4386.17 -32.5 / -32.5 Lab / Micro Data Result Diagrams: 09/18/21 04:45 09/18/21 04:45 Labs: Laboratory Results - last 24 hr 09/17/21 18:26: POC Glucose 226 H 09/17/21 21:36: POC Glucose 209 H 09/18/21 04:45: WBC 9.3, RBC 4.12 L, Hgb 12.1 L, Hct 35.6 L, MCV 86.4, MCH 29.4, MCHC 34.0, RDW Std Deviation 40.2, RDW Coeff of Caitlin 13.0, Plt Count 150, MPV 9.7 09/18/21 04:45: Sodium 136, Potassium 3.9, Chloride 103, Carbon Dioxide 27.0, Anion Gap 6, BUN 17, Creatinine 0.76, Estim Creat Clear Calc 68.74, Est GFR (MDRD) Af Amer 129, Est GFR (MDRD) Non-Af 107, BUN/Creatinine Ratio 22.2 H, Glucose 147 H, Calcium 8.4 L 09/18/21 06:19: POC Glucose 140 H Micro: Microbiology 09/08/21 09:33 Swab (Method) Nasal Screen MRSA/MSSA - Final Radiography Diagnostic Testing: Radiology Impression Hip X-Ray 09/17/21 13:53 IMPRESSION: Successful total hip arthroplasty. Electronically Signed: Miguel Ángel Gamez MD at 16:50 EDT Reading Location ID and State: [facility] / [place] , Service support , Physical Exam Const alert, oriented x3 and no apparent distress HEENT head/scalp atraumatic and moist oral mucous membranes Head and Scalp: normocephalic Eyes PERRL, EOMs intact bilaterally and conjunctivae normal Neck no lymphadenopathy, supple and no JVD Resp normal respiratory effort, no retractions and no use of accessory muscles Cardio regular rate, regular rhythm and no JVD GI normal to inspection, nondistended, normoactive bowel sounds and soft to palpation Extremity normal to inspection and full ROM Skin no rashes or lesions noted and no wounds Neuro CN's II-XII intact bilaterally Psych affect normal Assessment & Plan Assessment/Plan (1) Type 2 diabetes mellitus without complications: PLAN: Patient is a 71-year-old male who presents to the hospital medicine service on consult from orthopedics. 1) HTN Resume home BP regimen, no medication changes made. 2) DM2 Resume home oral diabetic regimen. No medication changes made. 3) hyperlipidemia Continue statin. 4) osteoarthritis POD 1, status post right robotic assisted total hip arthroplasty. Management per orthopedics. Patient seen by Maxime Snyder PA-C, under the supervision of Dr. Blackwell. Time spent on patient care: 8 minutes. Documented by User: Dr. Zen Blackwell MD 09/18/21 11:04 Objective Data Lab / Micro Data Result Diagrams: 09/18/21 04:45 09/18/21 04:45 Charges/Coding Addendum Addendum: Dr. Blackwell: I personally reviewed the chart and examined the patient, and agree with the above findings. 71-year-old male presents for a right total hip arthroplasty secondary to arthritis. He is done well with surgery and denies any significant postop pain. He does have a history of hypertension, diabetes however his blood sugars and his blood pressure are normal as is his renal function. From medical perspective he is stable for discharge with outpatient follow-up thank you for allowing us to participate in his care and at this time we will follow peripherally. Clinical time spent in all aspects of patient care 18 minutes Visit Charges OBSV E&M: 13147 Subsequent observation care L2
[2021-09-18 11:36] LABS: Bedside Glucose 130 mg/dL (74-106)
--- NOTE | 2021-09-18 12:50 | CASEMGMT ---
RN LAYA NOTE: Pt is on the [facility] Van transport schedule for 09/21 pick-up time b/w 7 and 8 AM to take him to [facility] for 9 AM appt. Pt to be ready by 7 AM. Pt and family made aware. They voice appreciation and deny having any further discharge planning needs or concerns. Juancarlos AGUDELO RN CM
[2021-09-18 13:45] VITALS: BP 134/71; PULSE 67; RESP 16; TEMP 36.8; O2SAT 97
== END 2021-09-18 14:27 | disposition home or self-care (01) ==
LOC: MS3 09-18 07:01 → SDC 09-21 16:37
PROVIDERS: Anesthesiology; Admitting Provider Student in an Organized Health Care Education/Training Program; PCP Internal Medicine; Referring Provider Student in an Organized Health Care Education/Training Program; Visit Provider Student in an Organized Health Care Education/Training Program
PROC: 0SR90JZ Replacement of Right Hip Joint with Synthetic Substitute, Open Approach (ICD-10-PCS; CPT 27130; principal; 2021-09-17 09:15)
DX: M16.11 Unilateral primary osteoarthritis, right hip (principal); E11.42 Type 2 diabetes mellitus with diabetic polyneuropathy; G47.33 Obstructive sleep apnea (adult) (pediatric); E78.5 Hyperlipidemia, unspecified; I10 Essential (primary) hypertension; Z79.899 Other long term (current) drug therapy; Z79.82 Long term (current) use of aspirin; Z79.84 Long term (current) use of oral hypoglycemic drugs; Z87.891 Personal history of nicotine dependence; E66.8 Other obesity; Z68.31 Body mass index [BMI] 31.0-31.9, adult
CPT/HCPCS: 27130; 01214; S2900; 36415; 71046; 73502; 80048; 82962; 83036; 83735; 85025; 85027; 87081; 88305; 88311; 93005; 96361; 96365; 96366; 97110; 97162; 97166; 97530; 97535; 99218; 99406; C1776; J7120; G0378; J2405; J3475

== ENCOUNTER 2021-10-23 09:30 | Outpatient (RCR) | payer BC, MEDICARE, SELFPAY ==
--- NOTE | 2021-09-21 10:16 | HP.PTEVAL ---
Patient's Visit Information MARIBEL RAMIREZ is a 71 year old M referred to Physical Therapy by Dr. Zen Harper DO with a diagnosis of R KRISTIN. Date of Evaluation: 09/21/21 Physical Therapist: Miguel Ángel Spear, PT, ATC - Visit Plan Frequency: 2-3x /Week Duration: 6-8 weeks Plan: R hip strengthening, core stab ex's, stair negotiation, gait training, nustep, and HEP - Subjective DOS: 09/17/21. Pt reports he had a R KRISTIN performed after a long history of R hip pain. pt reports sleep difficulty at this time secondary to pain. Pt reports he had a difficult time walking prior to surgery. Pt reports he had a posterior approach performed at that time. 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 pt reports he has a little tingling going down his R leg that becomes achy at times. Pt denies any PMHx of R hip complications prior to this surgery. Pt reports he has stairs at home but doesn't need to negotiate them on a daily basis. Pt reports he has to carry 48# at work which he hopes to be able to get back to in 12 weeks. 2/10 pain while sitting here at rest and on pain meds, 5/10 pain at worst (just while he is sitting at rest). - Pain R KRISTIN Pain Intensity (Out of 10): 2 Pain Intensity Range: 5 - Objective Neuro: R L4 dermatome is hyposensitive to light touch. All other B LE sensation is WNL to light touch. MMT: L hip flex= 24, ext= 22; R hip flex= 10, ext= 10 #F. ROM: L hip flex= 90, ext= 0; R hip flex= 55, ext= 0. Gait: Pt is able to ambulate 270 feet with CGAx1 and WW until needing to rest secondary to fatigue. - Balance/Special Test Scores Lower Extremity Functional Score: 16 - Goals Goal 1:: Decrease R hip pain x 50% to aid with sleep Goal Time Frame: 4-6 Weeks Goal 2:: Increase R hip strength x 5#F to aid with stair negotiation Goal Time Frame: 4-6 Weeks Goal 3:: Increase R hip flex ROM x 10-15 degrees to aid with IADL's Goal Time Frame: 4-6 Weeks Goal 4:: I with HEP Goal Time Frame: 4-6 Weeks Goal 5:: Pt will be able to ambulate greater that 600 feet to aid with community ambulation Goal Time Frame: 4-6 Weeks - Rehabilitation Potential Physical Therapy Diagnosis: Pt has R hip pain, weakness, and limited gait tolerance secondary to R KRISTIN Rehabilitation Potential: Good - Anticipated Interventions Patient/Client Instruction: Educate patient on: Condition, Plan of Care For the Purpose of:: To improve self management Therapeutic Exercise to Include: Strength training, Endurance training, Balance training, Gait and locomotor training, Dynamic Lumbar Stabilization For the Purpose of:: To decrease pain, To increase ROM, To improve muscle performance and motor function Cryotherapy (ice pack, ice massage): Yes For the Purpose of:: To decrease pain Thank you for the opportunity to evaluate your patient. For Medicare and Medicare HMO plans, please review the plan of care and approve it. It will need to be FAXED BACK to us at [phone] for Medicare purposes. For Medicare only, by signing this I certify the plan of care. Please let me know if there are questions or concerns regarding this plan of care. Physician Signature: Date:
--- NOTE | 2021-10-23 09:08 | HP.PTDCSUM ---
It has been my pleasure to treat MARIBEL RAMIREZ referred by Dr. Zen Harper DO, with the diagnosis of R KRISTIN for a total of 11 visit(s). Discharge Date: Please see the following information for a summary of their discharge status. Subjective: No pain today. I am ready to be done R KRISTIN Pain Intensity (Out of 10): 0 % Improvement: 95 Objective/Function: R hip pain 0/10. R hip MMT: flex= 23, ext= 25 #F. R hip ROM: flex= 80, ext= 10 degrees. Tug= 8.16. Pt is I with HEP. Rx goals achieved Goal 1:: Decrease R hip pain x 50% to aid with sleep Goal Progress: Goal Met Goal 2:: Increase R hip strength x 5#F to aid with stair negotiation Goal Progress: Goal Met Goal 3:: Increase R hip flex ROM x 10-15 degrees to aid with IADL's Goal Progress: Goal Met Goal 4:: I with HEP Goal Progress: Goal Met Goal 5:: Pt will be able to ambulate greater that 600 feet to aid with community ambulation Plan: Discharge to HEP If there are questions or concerns regarding this patient's physical therapy, please feel free to call me at [phone]. Thank you for the referral of this patient. Sincerely, Miguel Ángel Spear, PT, ATC Balance/Gait/Functional tests - Balance/Special Test Scores Lower Extremity Functional Score: 66
== END 2021-10-23 19:00 | disposition home or self-care (01) ==
LOC: PT 09:30
PROVIDERS: PCP Internal Medicine; Referring Provider Student in an Organized Health Care Education/Training Program; Visit Provider Student in an Organized Health Care Education/Training Program
DX: Z47.1 Aftercare following joint replacement surgery (principal); Z96.641 Presence of right artificial hip joint; M16.11 Unilateral primary osteoarthritis, right hip
CPT/HCPCS: 97110; 97161; 97164

== ENCOUNTER 2022-01-29 05:20 | Outpatient (CLI) | payer BC, MEDICARE, SELFPAY ==
[2022-01-29 06:00] LABS: Bacteria 0 SEEN /hpf (None Seen); Mucous, Urine 0 SEEN /hpf (<or=2+); Red Blood Cells-Urine 0 SEEN /hpf (0-5); Squamous Epithelial Cells - UA 0 SEEN /hpf (0-5); White Blood Cells 0 SEEN /hpf (0-5)
[2022-01-29 07:01] LABS: Absolute Lymphocyte Count 2.05 X10^3/uL (0.83-4.51); Absolute Neutrophil Count 2.8 X10^3/uL (2.0-7.7); Basophil# 0.02 X10^3/uL; Basophil% 0.4 % (0-1); Color, Urine Yellow (Yellow); Eosinophil# 0.14 X10^3/uL; Eosinophils% 2.5 % (0-5); Glucose, Dipstick 1000 mg/dl (Normal); Hematocrit 46.9 % (40-54); Hemoglobin 15.7 g/dL (13.0-16.5); Ketone-Dipstick Negative (Negative); Leukocyte Esterase-Dipstick Negative /ul (Negative); Lymphocyte # 2.05 X10^3/ul (0.83-4.51); Lymphocyte % 37.2 % (19-41); Mean Corp Hgb Conc 33.5 g/dL (32-36); Mean Corpuscular Hgb 28.4 pg (27.0-32.0); Mean Corpuscular Volume 84.8 fL (80-94); Mean Platelet Vol. 9.8 fl (6.2-12.0); Monocyte# 0.43 X10^3/uL; Monocyte% 7.8 % (0-10); NRBC Flagged by Analyzer 0 % (0-5); Neutrophil # 2.83 X10^3/uL (2.7-7.7); Neutrophil % 51.4 % (47-70); Nitrite-Dipstick Positive (Negative); Occult Blood-Urine 25 /ul (Negative); Platelet Count 137 K/mm3 (150-450); Protein-Dipstick 30 mg/dl (Negative); RBC Distribution Width CV 13.4 % (11.6-14.6); RBC Distribution Width SD 41.1 fl (35.1-43.9); Red Blood Count 5.53 M/mm3 (4.6-6.2); Urine Bilirubin Dipstick Negative (Negative); Urine Clarity Clear (Clear); Urine Urobilinogen Normal (Normal); White Blood Count 5.5 K/mm3 (4.4-11.0)
[2022-01-29 07:41] LABS: ALB/GLOB Ratio 0.9 RATIO (0.9-2.4); AST(SGOT) 7 U/L (15-37); Alanine Aminotransfer ALT/SGPT 15 U/L (16-61); Albumin, Serum 3.6 g/dL (3.2-5.0); Alkaline Phosphatase 67 U/L (45-117); Anion Gap 5 (5-15); BUN 18 mg/dL (7-18); BUN/Creat Ratio 24.9 RATIO (10-20); Calcium,Total 9.1 mg/dL (8.5-10.1); Chloride 106 mmol/L (98-107); Cholesterol 213 mg/dL (200); Creatinine, Serum 0.72 mg/dL (0.70-1.30); EST Glomerular Filtration Rate 114 mL/min (>60); Est Glom Filt Rate - Afr Amer 138 mL/min (>60); Globulin 3.8 g/dL (2.2-4.2); Glucose 161 mg/dL (74-106); Hemoglobin A1c 6.3 % (3.8-5.6); High Density Lipoprotein 35 mg/dL; Potassium 4.2 mmol/L (3.5-5.1); Protein, Total 7.4 g/dL (6.4-8.2); Sodium Level 139 mmol/L (136-145); Thyroid Stim Hormone (TSH) 2.21 uIU/mL (0.358-3.74); Triglycerides 232 mg/dL; Very Low Density Lipoprotein 46 mg/dL (5-40)
== END 2022-01-29 23:59 | disposition home or self-care (01) ==
LOC: LAB 05:27
PROVIDERS: PCP Internal Medicine; Visit Provider Internal Medicine
DX: E78.5 Hyperlipidemia, unspecified (principal); E11.9 Type 2 diabetes mellitus without complications; E55.9 Vitamin D deficiency, unspecified; I10 Essential (primary) hypertension
CPT/HCPCS: 36415; 80053; 80061; 81001; 82043; 82306; 82570; 83036; 84443; 85025

== ENCOUNTER → 2022-09-04 | Outpatient (CLI) | payer BC, SELFPAY ==
[2022-09-04 08:30] LABS: Bacteria 0 SEEN /hpf (None Seen); Mucous, Urine 0 SEEN /hpf (<or=2+); Red Blood Cells-Urine 0 SEEN /hpf (0-5); Squamous Epithelial Cells - UA 0 SEEN /hpf (0-5); White Blood Cells 0 SEEN /hpf (0-5)
[2022-09-04 09:07] LABS: Absolute Lymphocyte Count 2.08 X10^3/uL (0.83-4.51); Absolute Neutrophil Count 2.9 X10^3/uL (2.0-7.7); Basophil# 0.02 X10^3/uL; Basophil% 0.4 % (0-1); Eosinophil# 0.11 X10^3/uL; Hematocrit 47.9 % (40-54); Hemoglobin 16.5 g/dL (13.0-16.5); Lymphocyte # 2.08 X10^3/ul (0.83-4.51); Lymphocyte % 37.7 % (19-41); Mean Corp Hgb Conc 34.4 g/dL (32-36); Mean Corpuscular Hgb 30.2 pg (27.0-32.0); Mean Corpuscular Volume 87.6 fL (80-94); Mean Platelet Vol. 9.5 fl (6.2-12.0); Monocyte# 0.35 X10^3/uL; Monocyte% 6.3 % (0-10); NRBC Flagged by Analyzer 0 % (0-5); Neutrophil # 2.91 X10^3/uL (2.7-7.7); Neutrophil % 52.7 % (47-70); Platelet Count 144 K/mm3 (150-450); RBC Distribution Width CV 13.2 % (11.6-14.6); RBC Distribution Width SD 41.8 fl (35.1-43.9); Red Blood Count 5.47 M/mm3 (4.6-6.2); White Blood Count 5.5 K/mm3 (4.4-11.0)
[2022-09-04 09:11] LABS: Color, Urine Yellow (Yellow); Glucose, Dipstick 1000 mg/dl (Normal); Ketone-Dipstick Negative (Negative); Leukocyte Esterase-Dipstick Negative /ul (Negative); Nitrite-Dipstick Negative (Negative); Occult Blood-Urine 10 /ul (Negative); Protein-Dipstick Negative (Negative); Urine Bilirubin Dipstick Negative (Negative); Urine Clarity Sl. Cloudy (Clear); Urine Urobilinogen Normal (Normal)
[2022-09-04 09:34] LABS: ALB/GLOB Ratio 0.8 RATIO (0.9-2.4); AST(SGOT) 11 U/L (15-37); Alanine Aminotransfer ALT/SGPT 15 U/L (16-61); Albumin, Serum 3.3 g/dL (3.2-5.0); Alkaline Phosphatase 74 U/L (45-117); Anion Gap 7 (5-15); BUN 18 mg/dL (7-18); BUN/Creat Ratio 22.1 RATIO (10-20); Calcium,Total 8.9 mg/dL (8.5-10.1); Chloride 106 mmol/L (98-107); Cholesterol 190 mg/dL (200); Creatinine, Serum 0.82 mg/dL (0.70-1.30); EST Glomerular Filtration Rate 99 mL/min (>60); Est Glom Filt Rate - Afr Amer 120 mL/min (>60); Globulin 3.9 g/dL (2.2-4.2); Glucose 162 mg/dL (74-106); High Density Lipoprotein 33 mg/dL; PSA,Total - Annual Screen 1.29 ng/mL (0.00-4.00); Potassium 4.8 mmol/L (3.5-5.1); Protein, Total 7.2 g/dL (6.4-8.2); Sodium Level 141 mmol/L (136-145); Thyroid Stim Hormone (TSH) 1.48 uIU/mL (0.358-3.74); Triglycerides 241 mg/dL; Very Low Density Lipoprotein 48 mg/dL (5-40)
[2022-09-04 09:37] LABS: Microalbumin:Creatinine Ratio 16.1 mg/g CRE (<30 mg/g CRE)
[2022-09-07 08:34] LABS: Vitamin D,25 Hydroxy 74.5 ng/mL
== END | disposition home or self-care (01) ==
LOC: LAB 08:22
PROVIDERS: PCP Internal Medicine; Referring Provider Internal Medicine; Visit Provider Internal Medicine
DX: E78.5 Hyperlipidemia, unspecified (principal); E11.9 Type 2 diabetes mellitus without complications; I10 Essential (primary) hypertension; E55.9 Vitamin D deficiency, unspecified; Z12.5 Encounter for screening for malignant neoplasm of prostate
CPT/HCPCS: 36415; 80053; 80061; 81001; 82043; 82306; 82570; 84153; 84443; 85025; G0103

== ENCOUNTER 2022-10-06 16:00 | Outpatient (RCR) | payer BC, SELFPAY ==
--- NOTE | 2022-09-29 16:47 | HP.PTEVAL ---
Patient's Visit Information MARIBEL RAMIREZ is a 72 year old M referred to Physical Therapy by Dr. Mili Talbert DO with a diagnosis of vertigo. Date of Evaluation: 09/29/22 Physical Therapist: Kishor García DPT, OCS, CSCS - Visit Plan Frequency: 1x/Week Duration: 2-4 Weeks Plan: weekly as needed for positional treatments. F/U next week for positional and walking looking up test - Subjective Gets vertigo mostly when I want to lie down adn sleep. it has been there for a while. Had covid 2 yrs ago and dizzy shortly thereafter. Started with bad vertigo and could not be up at all but better after a couple days. slowly improved. Now gets dizzy with lying down, he gets 30 seconds spinning dizzyness and then it feels ok. Moving in bed may happen again. Feels OK in between these episodes. Balance is good when not dizzy, no falls. sleep is Ok but might be uncomfortable when he gets dizzy, sleeps about 2 hours. 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 no dizzyness at work. Hobbies: Doing nothing at home. Basic ADLs are going OK. Not avoiding much at home. Sometimes avoids yard work due to not feeling right. - Objective Walks I back to PT , traykoastaers I, steps with rail reciprocally I. Cervical aROM WFL and without pain, UE AROM WFL. - R HD. + L HD, 10 second up torsional nystagmus with dizzyness, treated with Modified Garrett and then gone. Walked out I. - Balance/Special Test Scores Functional Gait Assessment Score: 28 % Disability: 6.6700 Dizziness Score: 42 - Goals Goal 1:: Abolish dizzyness in bed at night. Goal Time Frame: 2-4 Weeks Goal 2:: Pt feel 100% back to normal Goal Time Frame: 2-4 Weeks Goal 3:: Walk looking up without dizzyness Goal Time Frame: 2-4 Weeks - Rehabilitation Potential Physical Therapy Diagnosis: BPPV L PC Rehabilitation Potential: Good - Anticipated Interventions Patient/Client Instruction: Educate patient on: Condition, Plan of Care For the Purpose of:: To increase tolerance to activity/condition/position Therapeutic Exercise to Include: Balance training Comment: positional treatments For the Purpose of:: To increase tolerance to activity/condition/position Thank you for the opportunity to evaluate your patient. For Medicare and Medicare HMO plans, please review the plan of care and approve it. It will need to be FAXED BACK to us at [phone] for Medicare purposes. For Medicare only, by signing this I certify the plan of care. Please let me know if there are questions or concerns regarding this plan of care. Physician Signature: Date:
--- NOTE | 2022-11-23 10:37 | HP.PT.NRP ---
Patient Information Patient Information: MARIBEL RAMIREZ was seen in my office for initial evaluation on 09/29/22. The following Plan of Care was established for this patient: POC Established Initial Frequency: 1x/Week Initial Duration: 2-4 Weeks Anticipated Interventions Patient/Client Instruction: Educate patient on: Condition and Plan of Care For the Purpose of:: To increase tolerance to activity/condition/position Therapeutic Exercise to Include: Balance training For the Purpose of:: To increase tolerance to activity/condition/position Last Seen Last Seen: This patient was last seen in our office 10/06/22. Pertinent comments regarding their Physical therapy will appear below: Pt seen 2 visits and was 80% better. he was to f/u two weeks later to ensure improvement but did not schedule or attend. It has been over 6 weeks and I will discontinue from my care. At this point I will be discontinuing this patient from physical therapy. I would be happy to see this patient again in the future if found appropriate by the physician. Thank you! Kishor García, DPT, OCS, CSCS Balance/Gait/Functional tests Balance/Special Test Scores Functional Gait Assessment Score: 28 % Disability: 6.6700 Dizziness Score: 42
== END 2022-10-06 19:00 | disposition home or self-care (01) ==
LOC: PT 16:00
PROVIDERS: PCP Internal Medicine; Referring Provider Internal Medicine; Visit Provider Internal Medicine
DX: R42 Dizziness and giddiness (principal)
CPT/HCPCS: 97161; 97530

== ENCOUNTER → 2022-12-30 | Outpatient (CLI) | payer BC, SELFPAY | END | disposition home or self-care (01) | PROVIDERS: PCP Internal Medicine; Referring Provider Internal Medicine Cardiovascular Disease; Visit Provider Internal Medicine Cardiovascular Disease | DX: I35.0 Nonrheumatic aortic (valve) stenosis (principal); R94.31 Abnormal electrocardiogram [ECG] [EKG] | CPT/HCPCS: 93225; 93226 ==

== ENCOUNTER → 2023-01-12 | Outpatient (CLI) | payer BC, SELFPAY ==
--- NOTE | 2023-01-12 12:09 | ECHOD_ITS ---
Reason For Study: NON-RHEUMATIC AORTIC STENOSIS Procedure This was a 2D Doppler, Color Flow transthoracic echocardiogram. Exam performed in department. Left Ventricle Normal LV size. Left ventricular systolic function is normal. The estimated ejection fraction is 55 %. Stage 1 diastolic dysfunction. No regional wall motion abnormalities noted. Right Ventricle Normal RV size. Normal systolic function. Atria The left atrium is moderately enlarged. Normal right atrium. Mitral Valve Normal mitral valve. Tricuspid Valve Normal tricuspid valve. Mild tricuspid valve insufficiency. Pulmonary artery systolic pressure is 30 mmHg. Aortic Valve Trisinus/trileaflet aortic valve. Moderate focal aortic valve calcification. Peak aortic valve gradient 23 mmHg. Mean aortic valve gradient 13 mmHg. Mild aortic stenosis. Pulmonic Valve Normal pulmonic valve. Great Vessels Normal aortic root. The pulmonary artery is normal size. Normal inferior vena cava. Pericardium/Pleural No pericardial effusion. MMode/2D Measurements & Calculations LVIDd: 5.1 cm IVSd: 1.1 cm LVOT diam: 2.3 cm LVIDs: 3.5 cm LVPWd: 1.1 cm LVOT area: 4.2 cm2 RVDd: 3.7 cm FS: 31.1 % Ao root diam: 3.7 cm LAV(MOD-bp): 72.6 ml LVAd ap4: 33.1 cm2 LAV(MOD-bp) Indexed: 33.5 ml/m2 LVLd ap4: 7.9 cm LAV(MOD-sp2): 63.6 ml EDV(MOD-sp4): 116.5 ml LAV(MOD-sp4): 89.4 ml EDV(sp4-el): 118.2 ml LVAs ap4: 20.2 cm2 LVLs ap4: 6.4 cm ESV(MOD-sp4): 54.4 ml ESV(sp4-el): 54.2 ml EF(MOD-sp4): 53.3 % EF(sp4-el): 54.2 % SV(MOD-sp4): 62.1 ml SV(sp4-el): 64.0 ml Aortic Valve Planimetry: 1.5 cm2 LA A4 area: 25.9 cm2 LA dimension(2D): 4.6 cm RA A4 area: 15.5 cm2 TAPSE: 2.4 cm Time Measurements MV dec time: 0.22 sec Doppler Measurements & Calculations MV E max yefri: 55.7 cm/sec Lat Peak E' Yefri: 4.0 cm/sec Med Peak E' Yefri: 6.0 cm/sec MV A max yefri: 66.0 cm/sec E/E' lat: 13.8 E/E' med: 9.4 MV E/A: 0.84 Ao V2 max: 238.7 cm/sec LV V1 max: 83.5 cm/sec MV dec slope: 255.6 cm/sec2 Ao max P.8 mmHg LV V1 max P.8 mmHg Ao V2 mean: 170.0 cm/sec LV V1 mean P.8 mmHg Ao mean P.9 mmHg LV V1 mean: 64.8 cm/sec Ao V2 VTI: 51.0 cm LV V1 VTI: 20.5 cm AV (velocity ratio): 0.40 LORETO(I,D): 1.7 cm2 LORETO(V,D): 1.5 cm2 SV(LVOT): 86.3 ml PA V2 max: 111.7 cm/sec TR max yefri: 256.4 cm/sec PA V2 mean: 76.6 cm/sec TR max P.3 mmHg PA V2 VTI: 23.5 cm ECHO/Echo Complete Interpretation Summary Normal LV size. Left ventricular systolic function is normal. The estimated ejection fraction is 55 %. Stage 1 diastolic dysfunction. Moderate focal aortic valve calcification. Mild aortic stenosis. Ordering Physician: Fabio Luther Referring Physician: Mili Talbert Performed By: Janki Smith, RDCS, RVT
== END | disposition home or self-care (01) ==
PROVIDERS: PCP Internal Medicine; Referring Provider Internal Medicine Cardiovascular Disease; Visit Provider Internal Medicine Cardiovascular Disease
DX: I35.0 Nonrheumatic aortic (valve) stenosis (principal)
CPT/HCPCS: 93306

== ENCOUNTER → 2023-03-04 | Outpatient (CLI) | payer BC, SELFPAY ==
[2023-03-04 07:29] LABS: Bacteria 0 SEEN /hpf (None Seen); Mucous, Urine 0 SEEN /hpf (<or=2+); Red Blood Cells-Urine 0 SEEN /hpf (0-5); Squamous Epithelial Cells - UA 0 SEEN /hpf (0-5); White Blood Cells 0 SEEN /hpf (0-5)
[2023-03-04 08:09] LABS: Absolute Neutrophil Count 2.8 X10^3/uL (2.0-7.7); Basophil# 0.02 X10^3/uL; Basophil% 0.4 % (0-1); Eosinophil# 0.13 X10^3/uL; Eosinophils% 2.4 % (0-5); Hematocrit 49.7 % (40-54); Hemoglobin 16.7 g/dL (13.0-16.5); Lymphocyte % 38.7 % (19-41); Mean Corp Hgb Conc 33.6 g/dL (32-36); Mean Corpuscular Hgb 29.6 pg (27.0-32.0); Mean Corpuscular Volume 88.1 fL (80-94); Mean Platelet Vol. 9.3 fl (6.2-12.0); Monocyte# 0.34 X10^3/uL; Monocyte% 6.3 % (0-10); NRBC Flagged by Analyzer 0 % (0-5); Neutrophil # 2.77 X10^3/uL (2.7-7.7); Neutrophil % 51.1 % (47-70); Platelet Count 137 K/mm3 (150-450); RBC Distribution Width CV 13.2 % (11.6-14.6); RBC Distribution Width SD 42.5 fl (35.1-43.9); Red Blood Count 5.64 M/mm3 (4.6-6.2); White Blood Count 5.4 K/mm3 (4.4-11.0)
[2023-03-04 08:15] LABS: Color, Urine Yellow (Yellow); Glucose, Dipstick 1000 mg/dl (Normal); Ketone-Dipstick Negative (Negative); Leukocyte Esterase-Dipstick Negative /ul (Negative); Nitrite-Dipstick Negative (Negative); Occult Blood-Urine 10 /ul (Negative); Protein-Dipstick Negative (Negative); Urine Bilirubin Dipstick Negative (Negative); Urine Clarity Clear (Clear); Urine Urobilinogen Normal (Normal)
[2023-03-04 08:47] LABS: ALB/GLOB Ratio 0.9 RATIO (0.9-2.4); AST(SGOT) 10 U/L (15-37); Alanine Aminotransfer ALT/SGPT 18 U/L (16-61); Albumin, Serum 3.5 g/dL (3.2-5.0); Alkaline Phosphatase 71 U/L (45-117); Anion Gap 1 (5-15); BUN 18 mg/dL (7-18); Chloride 104 mmol/L (98-107); Cholesterol 211 mg/dL (200); Creatinine, Serum 0.86 mg/dL (0.70-1.30); EST Glomerular Filtration Rate 93 mL/min (>60); Est Glom Filt Rate - Afr Amer 113 mL/min (>60); Globulin 3.8 g/dL (2.2-4.2); Glucose 169 mg/dL (74-106); High Density Lipoprotein 33 mg/dL; Potassium 4.2 mmol/L (3.5-5.1); Protein, Total 7.3 g/dL (6.4-8.2); Sodium Level 136 mmol/L (136-145); Triglycerides 254 mg/dL; Very Low Density Lipoprotein 51 mg/dL (5-40)
[2023-03-04 10:37] LABS: Microalbumin:Creatinine Ratio 33.6 mg/g CRE (<30 mg/g CRE)
== END | disposition home or self-care (01) ==
LOC: LAB.FUTURE 07:26 → LAB 07:28
PROVIDERS: PCP Internal Medicine; Referring Provider Internal Medicine; Visit Provider Internal Medicine
DX: E55.9 Vitamin D deficiency, unspecified (principal); E11.9 Type 2 diabetes mellitus without complications; E78.5 Hyperlipidemia, unspecified
CPT/HCPCS: 36415; 80053; 80061; 81001; 82043; 82306; 82570; 84443; 85025

== ENCOUNTER → 2023-10-01 | Outpatient (CLI) | payer BC, SELFPAY ==
[2023-10-01 07:54] LABS: Bacteria 0 SEEN /hpf (None Seen); Mucous, Urine 0 SEEN /hpf (<or=2+); Red Blood Cells-Urine 0 SEEN /hpf (0-5); Squamous Epithelial Cells - UA 0 SEEN /hpf (0-5); White Blood Cells 0 SEEN /hpf (0-5)
[2023-10-01 08:21] LABS: Absolute Lymphocyte Count 2.15 X10^3/uL (0.83-4.51); Absolute Neutrophil Count 2.9 X10^3/uL (2.0-7.7); Basophil# 0.01 X10^3/uL; Basophil% 0.2 % (0-1); Eosinophil# 0.11 X10^3/uL; Eosinophils% 1.9 % (0-5); Hematocrit 46.3 % (40-54); Hemoglobin 15.4 g/dL (13.0-16.5); Lymphocyte # 2.15 X10^3/ul (0.83-4.51); Mean Corp Hgb Conc 33.3 g/dL (32-36); Mean Corpuscular Hgb 29.2 pg (27.0-32.0); Mean Corpuscular Volume 87.7 fL (80-94); Mean Platelet Vol. 9.6 fl (6.2-12.0); Monocyte# 0.41 X10^3/uL; Monocyte% 7.2 % (0-10); NRBC Flagged by Analyzer 0 % (0-5); Neutrophil # 2.94 X10^3/uL (2.7-7.7); Platelet Count 144 K/mm3 (150-450); RBC Distribution Width CV 13.2 % (11.6-14.6); RBC Distribution Width SD 41.8 fl (35.1-43.9); Red Blood Count 5.28 M/mm3 (4.6-6.2); White Blood Count 5.7 K/mm3 (4.4-11.0)
[2023-10-01 08:45] LABS: Color, Urine Yellow (Yellow); Glucose, Dipstick 1000 mg/dl (Normal); Ketone-Dipstick Negative (Negative); Leukocyte Esterase-Dipstick Negative /ul (Negative); Nitrite-Dipstick Negative (Negative); Occult Blood-Urine Negative /ul (Negative); Protein-Dipstick Negative (Negative); Specific Gravity, Urine 1.015 (1.002-1.030); Urine Bilirubin Dipstick Negative (Negative); Urine Clarity Clear (Clear); Urine Urobilinogen Normal (Normal)
[2023-10-01 08:57] LABS: ALB/GLOB Ratio 0.9 RATIO (0.9-2.4); AST(SGOT) 15 U/L (15-37); Alanine Aminotransfer ALT/SGPT 18 U/L (16-61); Albumin, Serum 3.4 g/dL (3.2-5.0); Alkaline Phosphatase 50 U/L (45-117); Anion Gap 5 (5-15); BUN 19 mg/dL (7-18); BUN/Creat Ratio 22.7 RATIO (10-20); Calcium,Total 8.8 mg/dL (8.5-10.1); Chloride 106 mmol/L (98-107); Cholesterol 183 mg/dL (200); Creatinine, Serum 0.84 mg/dL (0.70-1.30); EST Glomerular Filtration Rate 96 mL/min (>60); Est Glom Filt Rate - Afr Amer 116 mL/min (>60); Globulin 3.6 g/dL (2.2-4.2); Glucose 159 mg/dL (74-106); High Density Lipoprotein 33 mg/dL; Sodium Level 137 mmol/L (136-145); Thyroid Stim Hormone (TSH) 1.61 uIU/mL (0.358-3.74); Triglycerides 169 mg/dL; Very Low Density Lipoprotein 34 mg/dL (5-40)
[2023-10-01 09:02] LABS: Microalbumin:Creatinine Ratio 21.6 mg/g CRE (<30 mg/g CRE)
[2023-10-03 08:52] LABS: Vitamin D,25 Hydroxy 47.7 ng/mL
== END | disposition home or self-care (01) ==
LOC: LAB 07:50
PROVIDERS: PCP Internal Medicine; Referring Provider Internal Medicine; Visit Provider Internal Medicine
DX: E78.5 Hyperlipidemia, unspecified (principal); E11.65 Type 2 diabetes mellitus with hyperglycemia; E55.9 Vitamin D deficiency, unspecified
CPT/HCPCS: 36415; 80053; 80061; 81001; 82043; 82306; 82570; 84443; 85025

== ENCOUNTER 2024-03-16 06:57 | Day surgery (SDC) | payer BC, SELFPAY ==
[2024-03-16] VITALS (9 sets, daily range): BP systolic 90–130; BP diastolic 63–96; PULSE 52–64; RESP 16–18; TEMP 36.1–36.4; O2SAT 95–98; BMI 30.9
--- NOTE | 2024-03-16 | COLBX_PTH ---
PATIENT: MARIBEL RAMIREZ LOC: EN U#:[id number] AGE/SX: 73/M ROOM: RE03/16/[address]: Dr. David Carmichael MD : 1950 BED: DIS: 03/16/2024 SPEC #: [id number] RECD: 03/16/24 12:26 STATUS: MONIKA JUSTIN #: [id number] KIAN: 03/16/24 00:[address]: David Carmichael DEPT: SURGICAL PATHOLOGY RECD BY: Raheel Roa ENTERED: 03/16/24 12:27 SP TYPE: COLON BX OTHR DR: Dr. Mili Talbert, DO Tissues: Rectum, NOS Procedures: Surgery Specimen Level IV HEADER OPERATION: Colonoscopy and polypectomy PRE-OP DIAGNOSIS: Screening TISSUE SUBMITTED: Rectal polyp MICROSCOPIC DIAGNOSIS Rectal polyp, biopsy: Hyperplastic polyp. AM. 03/19/2024 MICROSCOPIC DESCRIPTION Slides are reviewed. GROSS DESCRIPTION Received in fixative is one container labeled with the patient's name and designated Rectal polyp. The specimen consists of one irregular fragment of light perez soft tissue that measures 0.5 x 0.3 x 0.1 cm. The specimen is totally submitted in one cassette. 03/16/2024 TC:5 CPT:43554
--- NOTE | 2024-03-16 07:20 | PCM.HP.BLA ---
History and Physical Date of Admission: 03/16/24 Intake Vital Signs 11/01/2412:01 02/01/2408:33 Height 5 ft 9 in 5 ft 9 in Weight: 219 lb 217 lb BMI 32.3 32.0 BP 169/85 H 148/88 H Blood Pressure Location Rt brachial Rt brachial Position Sitting Sitting Respiration 16 17 Pulse 59 L 57 L Pulse Source Monitor Monitor Pulse Oximetry (%) 96 97 Oxygen Delivery Method room air room air Intake Visit Reasons: COLONOSCOPY Chief Complaint: coloonoscopy Is patient in pain?: No Allergies No Known Allergies Allergy (Verified 02/01/24 08:34) Medications ?Medication ?Instructions ?Recorded ?Confirmed ?Type benazepril 40 mg tablet 40 mg PO QDAY 06/09/17 02/01/24 History citalopram 20 mg tablet (Celexa) 20 mg PO QDAY 06/09/17 02/01/24 History spironolactone 25 mg tablet 25 mg PO QDAY 06/09/17 02/01/24 History empagliflozin 25 mg tablet 25 mg PO DAILY 09/01/18 02/01/24 History (Jardiance) sitagliptin phosphate 100 mg 100 mg PO DAILY 09/01/18 02/01/24 History tablet (Januvia) metoprolol tartrate 100 mg tablet 100 mg PO BID 10/14/22 02/01/24 History aspirin 81 mg tablet,delayed 81 mg PO DAILY 12/22/22 02/01/24 History release (Adult Low Dose Aspirin) cholecalciferol (vitamin D3) 25 25 mcg PO DAILY 11/02/23 02/01/24 History mcg (1,000 unit) tablet fenofibric acid (choline) 135 mg 135 mg PO QDAY 11/02/23 02/01/24 History capsule,delayed release amlodipine 2.5 mg tablet (Norvasc) 5 mg PO DAILY 11/04/23 02/01/24 History clonidine HCl 0.1 mg tablet 0.1 mg PO DAILY 11/04/23 02/01/24 History artic c-fish PO DAILY 02/01/24 02/01/24 History garlic pill PO DAILY 02/01/24 02/01/24 History glimepiride 1 mg tablet 1 mg PO BID 02/01/24 02/01/24 History metformin 1,000 mg tablet 1,000 mg PO BID 02/01/24 02/01/24 History Have you fallen in the past year?: No PFSH Medical History BPH associated with nocturia COVID-19 BPV (benign positional vertigo) RBBB Vitamin D deficiency Venous (peripheral) insufficiency Essential hypertension Depression Anxiety Arthritis Prostate disease Back pain Former smoker Dietary restriction Heartburn History of pain when walking History of edema Pre-operative cardiovascular examination Sciatica Obstructive sleep apnea Neuropathy Nicotine dependence Obesity (BMI 30.0-34.9) Abnormal electrocardiogram Hyperlipidemia Type 2 diabetes mellitus without complications Non-rheumatic aortic stenosis Surgical History History of total right hip replacement (~09/2021) Hx of repair of right rotator cuff Hx of repair of left rotator cuff History of appendectomy History of umbilical hernia repair Family History (Updated 02/01/24 @ 08:33 by Lu Agarwal) Mother Diabetes HypertensionFather Hypertension Social History Smoking Status: Former smoker Tobacco: How many years used: 25 how long ago did patient quit smokin alcohol intake: never substance use type: does not use caffeine: No HPI HPI HPI: Patient is a 73-year-old male here for screening colonoscopy. He denies abdominal pain or blood in the stool. He usually does Cologuard's but he is instructed to have a colonoscopy this time. ROS General General: No weight change, appetite, fatigue, colon cancer, breast cancer or weakness HEENT HEENT: No difficulty swallowing, eye injury, eye surgery, swollen glands or hoarseness Endo Endocrine: Yes diabetes mellitus; No thyroid disease, thyroid cancer, Hair loss, heat intolerance or cold intolerance Skin Skin: No rash or changing moles Musc Musculoskeletal: No back problems, arthritis, rheumatoid arthritis, gout or joint pain Cardio Cardiovascular: Yes high blood pressure; No murmur, pacemaker, heart disease, atrial fibrillation, heart attack, heart stent, palpitations, shortness of breat with exertion or chest pain Psych Psychiatric: No depression, anxiety or hearing voices Resp Respiratory: No shortness of breath, No sleep apnea, No cough, No COPD, No asthma, No emphysema and No wheezing Gastro Gastrointestinal: No abdominal pain, No nausea or vomiting, No diarrhea, No constipation, No blood in stool, No acid reflux, No hemorrhoids, No ulcers, No gallbladder problem and No black,tarry stools Regis Hematologic: No blood thinners, No blood disorders, No bleeding, No anemia and No blood clots Neuro Neurologic: No system reviewed and no additional complaints, except as documented, No as per HPI, No abnormal gait, No abnormal hearing, No abnormal movements, No abnormal speech, No behavioral changes, No burning sensations, No confusion, No convulsions, No disequilibrium, No dizziness, No localized weakness, No frequent falls, No headache(s), No lack of coordination, No loss of vision, No memory loss, No numbness, No other visual disturbances, No radicular pain, No restless legs, No sensory deficit, No syncope, Yes tingling, No tremor(s), No weakness and No other Exam Const General: cooperative Orientation: alert and oriented x3 HENMT Head: normal to inspection Neck Neck: normal visual inspection and full ROM Chest Chest palpation & inspection: normal inspection of the chest Resp Effort & Inspection: normal respiratory effort Auscultation: clear to auscultation bilaterally Cardio Rate: regular rate Rhythm: regular rhythm GI Inspection: non-distended Palpation: soft and nontender Skin General: no rashes or lesions noted Neuro General: patient alert and patient oriented x3 Extrem General: full ROM Psych Appearance: grossly normal Mental Status: mental status grossly normal Assessment and Plan Assessment and Plan (1) Screening for malignant neoplasm of colon: Status: Acute Plan: I explained endoscopy in detail to the patient. I explained the risks including but not limited to stroke or heart attack with anesthesia, perforation of the GI tract, bleeding, infection. I explained that any of these could necessitate further emergency surgery. The patient understands and all questions were answered sufficiently. The patient wishes to proceed with procedure. David Carmichael MD Pager: [facility] [address] [place] [address], [address] [place] [address] Office: I have examined the patient and the H&P has been reviewed. There are no clinical changes since date of exam.
[2024-03-16 07:39] LABS: Bedside Glucose 159 mg/dL (74-106)
--- NOTE | 2024-03-16 07:57 | PCM.PRE.AN2 ---
ASA Classification* ASA Classification ASA Classification: 3 Assessment & Plan Anesthesia* Anesthesia Assessment Anesthesia Assessment: Discussed sedation and/or anesthesia options, risks, benefits, and alternatives with patient/parents/legal guardian/POA. Questions invited. The patient/parents/legal guardian/POA seems to understand and agrees to proceed with anesthesia plan. Reviewed the physical assessment, medical history, allergy history and patient home medications list prior to surgery/procedure/anesthetic and documented any changes. Performed airway and anesthesia risk assessments. Anesthesia Type Anesthesia Type: MAC History Source History Obtained from:: Patient and Chart Anesthesia Focused Assessment* Temperature: 97 F Pulse Rate: 57 Blood Pressure: 130/96 Respiratory Rate: 16 Pulse Ox: 98 Airway Assessment Mouth opens: >3 cm Mallampati Score: II Focused Labs Anesthesia Preop lab: CBC WBC 5.7 K/mm3 (4.4-11.0) 10/01/23 07:52 RBC 5.28 M/mm3 (4.6-6.2) 10/01/23 07:52 Hgb 15.4 g/dL (13.0-16.5) 10/01/23 07:52 Hct 46.3 % (40-54) 10/01/23 07:52 Plt Count 144 K/mm3 (150-450) L 10/01/23 07:52 CHEMISTRY Potassium 4.0 mmol/L (3.5-5.1) 10/01/23 07:52 Sodium 137 mmol/L (136-145) 10/01/23 07:52 Magnesium 2.2 mg/dL (1.6-2.6) 09/08/21 09:33 BUN 19 mg/dL (7-18) H 10/01/23 07:52 Creatinine 0.84 mg/dL (0.70-1.30) 10/01/23 07:52 Glucose 159 mg/dL (74-106) H 10/01/23 07:52 POC Glucose 159 mg/dL (74-106) H 03/16/24 07:16 TSH 1.61 uIU/mL (0.358-3.74) 10/01/23 07:52 COAG Pre-Assessment Diagnosis/Proposed Procedure Planned Operative Procedure(s): COLONOSCOPY Anesthesia History 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 When Was Last Pacemaker Check QUESTION #4 FULL TEXT: You/Your Family Experience fever (hyperthermia) with Anesthesia Last Oral Intake Last Oral intake: Last Oral Intake NPO since 23:00 03/16/24 07:16 Meds taken in AM with sips of Yes 03/16/24 07:16 water? Meds patient instructed to see medlist 03/16/24 07:16 take am of surgery PONV PONV - soda fountain clerk: PONV - soda fountain clerk Female No 03/15/24 08:39 HX of Motion Sickness No 03/15/24 08:39 HX of N/V After Surgery No 03/15/24 08:39 Non-Smoker Yes 03/15/24 08:39 Duration of Surgery greater No 03/15/24 08:39 than 60 minutes Number of Risk Factors 1 03/15/24 08:39 PONV Score Low Risk 03/15/24 08:39 Height & Weight Height & Weight: Anesthesia: Height & Weight Height 5 ft 9 in 03/16/24 07:16 Weight: 95.1 kg 03/16/24 07:16 Body Mass Index (BMI) 30.9 03/16/24 07:16 Respiratory Assessment Respiratory Assessment - soda fountain clerk: Respiratory Tract Infection Hx - soda fountain clerk Hx Respiratory Tract Infection No 03/15/24 08:39 STOP Sleep Apnea STOP Sleep Apnea - soda fountain clerk: STOP Sleep Apnea - soda fountain clerk Hx Hypertension Yes: CONTROLLED WITH MEDS 03/15/24 08:39 Hx Sleep Apnea No 03/15/24 08:39 CPAP BIPAP Do you snore loudly (louder No 03/15/24 08:39 than talking or can be heard Do you often feel tired/ No 03/15/24 08:39 fatigued/ sleepy during daytime? Has anyone observed you stop No 03/15/24 08:39 breathing during sleep? STOP Results Negative 03/15/24 08:39 QUESTION #5 FULL TEXT : Do you snore loudly (louder than talking or can be heard through closed doors)? 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 Specify any problems Hx of Preganancy in last 3 N/A 03/15/24 08:39 Months Nurse Filling Out Transfusion [email or web address] 03/15/24 08:39 & Questions: Date: 03/15/24 03/15/24 08:39 Time: 08:41 03/15/24 08:39 Patient unable to answer at this time (ie. confused, unrespo /Reproduction History /Reproductive History - soda fountain clerk: /Reproductive Hx- soda fountain clerk Hx Now Gestational Age (in weeks): EDC: Hx Hx Para Hx Section SAB No 09/03/21 10:30 PFSH Medical History Wears glasses History of echocardiogram History of stress test Cardiology follow-up encounter BPH associated with nocturia COVID-19 BPV (benign positional vertigo) RBBB Vitamin D deficiency Venous (peripheral) insufficiency Essential hypertension Depression Anxiety Arthritis Prostate disease Back pain Former smoker Dietary restriction Heartburn History of pain when walking History of edema Pre-operative cardiovascular examination Sciatica Obstructive sleep apnea Neuropathy Nicotine dependence Obesity (BMI 30.0-34.9) Abnormal electrocardiogram Hyperlipidemia Type 2 diabetes mellitus without complications Non-rheumatic aortic stenosis Home Medications ?Medication ?Instructions ?Recorded ?Last Taken ?Type benazepril 40 mg tablet 40 mg PO QDAY 06/09/17 09/17/21 04:30 History citalopram 20 mg tablet (Celexa) 20 mg PO QDAY 06/09/17 09/16/21 History spironolactone 25 mg tablet 25 mg PO QDAY 06/09/17 09/16/21 History empagliflozin 25 mg tablet 25 mg PO DAILY 09/01/18 09/16/21 History (Jardiance) sitagliptin phosphate 100 mg 100 mg PO DAILY 09/01/18 09/16/21 History tablet (Januvia) metoprolol tartrate 100 mg tablet 100 mg PO BID 10/14/22 03/16/24 History aspirin 81 mg tablet,delayed 81 mg PO DAILY 12/22/22 03/11/24 History release (Adult Low Dose Aspirin) cholecalciferol (vitamin D3) 25 25 mcg PO DAILY 11/02/23 Unknown History mcg (1,000 unit) tablet amlodipine 2.5 mg tablet (Norvasc) 2.5 mg PO BID 11/04/23 03/16/24 History clonidine HCl 0.1 mg tablet 0.1 mg PO DAILY 11/04/23 03/16/24 History artic c-fish 2 tab PO DAILY 02/01/24 03/11/24 History garlic pill 2 tab PO DAILY 02/01/24 Unknown History glimepiride 1 mg tablet 1 mg PO BID 02/01/24 Unknown History metformin 500 mg tablet,extended 500 mg PO BID 03/15/24 Unknown History release 24 hr Allergy/AdvReac Type Severity Reaction Status Date / Time No Known Allergies Allergy Verified 03/16/24 07:15 Family History Mother Diabetes Hypertension Father Hypertension Surgical History History of total right hip replacement (~09/2021) Hx of repair of right rotator cuff Hx of repair of left rotator cuff History of appendectomy History of umbilical hernia repair Social History Smoking Status: Former smoker Tobacco: How many years used: 25 how long ago did patient quit smokin alcohol intake: never substance use type: does not use caffeine: No Review of Systems (Anesthesia) ROS Narrative System reviewed and no additional complaints, except as documented.
--- NOTE | 2024-03-16 08:24 | OP.COLON_ITS ---
Patient Name: Kwame Brown Procedure Date: 03/16/2024 8:01 AM Date of : 1950 Age: 73 Procedure: Colonoscopy Indications: Screening for colorectal malignant neoplasm Providers: David Carmichael MD Referring MD: Mili Talbert Medicines: Propofol per Anesthesia Patient Profile: This is a 73 year old male. Refer to note in patient chart for documentation of history and physical. Last Colonoscopy: none. The patient's first colonoscopy is today. Complications: No immediate complications. Procedure: Pre-Anesthesia Assessment: - Prior to the procedure, a History and Physical was performed, and patient medications and allergies were reviewed. The patient's tolerance of previous anesthesia was also reviewed. The risks and benefits of the procedure and the sedation options and risks were discussed with the patient. All questions were answered, and informed consent was obtained. Prior Anticoagulants: The patient has taken no anticoagulant or antiplatelet agents. After reviewing the risks and benefits, the patient was deemed in satisfactory condition to undergo the procedure. After I obtained informed consent, the scope was passed under direct vision. Throughout the procedure, the patient's blood pressure, pulse, and oxygen saturations were monitored continuously. The pediatric colonoscope was introduced through the anus and advanced to the cecum, identified by appendiceal orifice and ileocecal valve. The colonoscopy was performed without difficulty. The patient tolerated the procedure well. The quality of the bowel preparation was good. The ileocecal valve, appendiceal orifice, and rectum were photographed. Scope In: 8:10:11 AM Scope Withdrawal Time 0 hours 9 minutes 38 seconds Scope Out: 8:21:49 AM Total Procedure Duration Time 0 hours 11 minutes 38 seconds Findings: A small polyp was found in the rectum. The polyp was removed with a hot snare. Resection and retrieval were complete. The exam was otherwise without abnormality on direct and retroflexion views. Impression: - One small polyp in the rectum, removed with a hot snare. Resected and retrieved. - The examination was otherwise normal on direct and retroflexion views. Recommendation: - Discharge patient to home. - Resume previous diet. - Continue present medications. - Await pathology results. - Repeat colonoscopy in 5 years for surveillance based on pathology results. Procedure Code(s): --- Professional --- 01126, Colonoscopy, flexible; with removal of tumor(s), polyp(s), or other lesion(s) by snare technique Diagnosis Code(s): --- Professional --- Z12.11, Encounter for screening for malignant neoplasm of colon D12.8, Benign neoplasm of rectum CPT copyright 2021 [employer]. All rights reserved. The codes documented in this report are preliminary and upon inpatient coder review may be revised to meet current compliance requirements. David Carmichael MD 03/16/2024 8:24:22 AM This report has been signed electronically. Number of Addenda: 0 Note Initiated On: 03/16/2024 8:01 AM
--- NOTE | 2024-03-16 08:24 | OP.CCLET_ITS ---
03/16/2024 Mili Talbert [address] [place] [address] Re : Colonoscopy procedure for Kwame Brown Dear Dr. Talbert This procedure was performed on Saturday, March 16, 2024. My impressions and recommendations are as follows: Impressions : - One small polyp in the rectum, removed with a hot snare. Resected and retrieved. - The examination was otherwise normal on direct and retroflexion views. Recommendations : - Discharge patient to home. - Resume previous diet. - Continue present medications. - Await pathology results. - Repeat colonoscopy in 5 years for surveillance based on pathology results. My findings are described in the full procedure note, which is enclosed. If I can be of further assistance, please feel free to contact me at Doctor phone number(s): , Work: . Sincerely, David Carmichael MD 03/16/2024 8:24:22 AM This report has been signed electronically.
--- NOTE | 2024-03-16 08:30 | PCM.POST.ANE ---
Anesthesia: Postop Eval I Current Vital Signs Temperature: 97.5 F Pulse Rate: 64 Blood Pressure: 95/64 Respiratory Rate: 16 Pulse Ox: 96 Oxygen Delivery Method: Room Air Assessment Airway patent: Yes Spontaneous unlabored respirations: Yes Mental status: Asleep nausea: No Vomiting: No Anesthesia Complication: No Fluid Hydration Crystalloid volume administer (ml): 30 Total IV fluid infused: 30 Progress Note Anesthesia document: Postop Eval 1 completed: Yes
--- NOTE | 2024-03-16 08:47 | PCM.POSTANE2 ---
Anesthesia Postop Eval I Sum Postop Eval Completion status Anesthesia document: Postop Eval 1 completed: Yes Anesthesia Postop Eval I Summary Anesthesia Postop Eval I Summary: Anesthesia Postop Eval I: Assessment Summary Airway patent Yes 03/16/24 08:32 [email or web address] Spontaneous unlabored Yes 03/16/24 08:32 [email or web address] respirations Mental status Asleep 03/16/24 08:32 [email or web address] nausea No 03/16/24 08:32 [email or web address] Vomiting No 03/16/24 08:32 [email or web address] Anesthesia Postop Eval I: Fluid Summary Crystalloid volume administer 30 03/16/24 08:32 [email or web address] (ml) Colloids volume administered ( ml) Blood Product volume administered (ml) Total IV fluid infused 30 03/16/24 08:32 [email or web address] Anesthesia Postop Eval I: Summary Notes Anesthesia Complication No 03/16/24 08:32 [email or web address] Anesthesia Complication Comment: Post-operative progress note Anesthesia: Postop Eval II Evaluation Mental status: Awake Pain Level: 0 nausea: No Vomiting: No
== END 2024-03-16 09:22 | disposition home or self-care (01) ==
LOC: EN 06:58 → AC 07:00
PROVIDERS: PCP Internal Medicine; Referring Provider Internal Medicine; Visit Provider Surgery
PROC: 0DJD8ZZ Inspection of Lower Intestinal Tract, Via Natural or Artificial Opening Endoscopic (ICD-10-PCS; CPT 45378; principal; 2024-03-16 07:55)
DX: Z12.11 Encounter for screening for malignant neoplasm of colon (principal); E11.9 Type 2 diabetes mellitus without complications; Z87.891 Personal history of nicotine dependence; Z90.49 Acquired absence of other specified parts of digestive tract; E78.5 Hyperlipidemia, unspecified; F32.A Depression, unspecified; Z79.899 Other long term (current) drug therapy; Z79.84 Long term (current) use of oral hypoglycemic drugs; Z96.641 Presence of right artificial hip joint; K62.1 Rectal polyp
CPT/HCPCS: 45385; 82962; 88305; A4216; J2405

== ENCOUNTER → 2024-04-07 | Outpatient (CLI) | payer BC, SELFPAY ==
[2024-04-07 07:49] LABS: Mucous, Urine 0 SEEN /hpf (<or=2+); Red Blood Cells-Urine 0 SEEN /hpf (0-5); White Blood Cells 0 SEEN /hpf (0-5)
[2024-04-07 08:13] LABS: Absolute Lymphocyte Count 1.83 X10^3/uL (0.83-4.51); Absolute Neutrophil Count 2.7 X10^3/uL (2.0-7.7); Basophil# 0.02 X10^3/uL; Basophil% 0.4 % (0-1); Color, Urine Yellow (Yellow); Eosinophil# 0.07 X10^3/uL; Eosinophils% 1.4 % (0-5); Glucose, Dipstick 1000 mg/dl (Normal); Hematocrit 45.5 % (40-54); Hemoglobin 15.3 g/dL (13.0-16.5); Ketone-Dipstick Negative (Negative); Leukocyte Esterase-Dipstick Negative /ul (Negative); Lymphocyte # 1.83 X10^3/ul (0.83-4.51); Lymphocyte % 36.5 % (19-41); Mean Corp Hgb Conc 33.6 g/dL (32-36); Mean Corpuscular Hgb 28.7 pg (27.0-32.0); Mean Corpuscular Volume 85.2 fL (80-94); Mean Platelet Vol. 9.5 fl (6.2-12.0); Monocyte# 0.35 X10^3/uL; NRBC Flagged by Analyzer 0 % (0-5); Neutrophil # 2.72 X10^3/uL (2.7-7.7); Neutrophil % 54.3 % (47-70); Nitrite-Dipstick Negative (Negative); Occult Blood-Urine Negative /ul (Negative); Platelet Count 142 K/mm3 (150-450); Protein-Dipstick Negative (Negative); RBC Distribution Width CV 13.7 % (11.6-14.6); RBC Distribution Width SD 42.4 fl (35.1-43.9); Red Blood Count 5.34 M/mm3 (4.6-6.2); Urine Bilirubin Dipstick Negative (Negative); Urine Clarity Clear (Clear); Urine Urobilinogen Normal (Normal)
[2024-04-07 08:23] LABS: Bacteria 1+ /hpf (None Seen); Squamous Epithelial Cells - UA 0-5 SEEN /hpf (0-5)
[2024-04-07 08:37] LABS: Microalbumin,Random Urine 7.2 mg/L (NO RANGE EST.); Microalbumin:Creatinine Ratio 10.8 mg/g CRE (<30 mg/g CRE)
[2024-04-07 08:44] LABS: Vitamin D,25 Hydroxy 49.7 ng/mL
[2024-04-07 08:47] LABS: ALB/GLOB Ratio 0.9 RATIO (0.9-2.4); AST(SGOT) 9 U/L (15-37); Alanine Aminotransfer ALT/SGPT 17 U/L (16-61); Albumin, Serum 3.5 g/dL (3.2-5.0); Alkaline Phosphatase 52 U/L (45-117); Anion Gap 5 (5-15); BUN 22 mg/dL (7-18); BUN/Creat Ratio 24.9 RATIO (10-20); Calcium,Total 8.9 mg/dL (8.5-10.1); Chloride 106 mmol/L (98-107); Cholesterol 208 mg/dL (200); Creatinine, Serum 0.88 mg/dL (0.70-1.30); EST Glomerular Filtration Rate 90 mL/min (>60); Est Glom Filt Rate - Afr Amer 109 mL/min (>60); Globulin 3.8 g/dL (2.2-4.2); Glucose 154 mg/dL (74-106); High Density Lipoprotein 44 mg/dL; Protein, Total 7.3 g/dL (6.4-8.2); Sodium Level 140 mmol/L (136-145); Triglycerides 100 mg/dL; Very Low Density Lipoprotein 20 mg/dL (5-40)
[2024-04-09 17:07] LABS: PSA, Total 1.4 ng/mL (0.0-4.0)
== END | disposition home or self-care (01) ==
LOC: LAB 07:46
PROVIDERS: PCP Internal Medicine; Referring Provider Internal Medicine; Visit Provider Internal Medicine
DX: I10 Essential (primary) hypertension (principal); E11.9 Type 2 diabetes mellitus without complications; E55.9 Vitamin D deficiency, unspecified; E78.5 Hyperlipidemia, unspecified; Z12.5 Encounter for screening for malignant neoplasm of prostate
CPT/HCPCS: 36415; 80053; 80061; 81001; 82043; 82306; 82570; 84153; 84443; 85025

== ENCOUNTER 2024-08-01 15:01 | Outpatient (CLI) | payer BC, SELFPAY ==
--- NOTE | 2024-08-01 15:07 | CT_ITS ---
PROCEDURE: LOW DOSE CT LUNG SCREENING 08/01/2024 REASON FOR EXAM: LOW-DOSE COMPUTED TOMOGRAPHY FOR LUNG CANCER SCREENING TECHNIQUE: Low Dose CT Lung screening without contrast. Coronal and Sagittal reconstruction series were provided. One or more dose reduction techniques were used (e.g., Automated exposure control, adjustment of the mA and/or kV according to patient size, use of iterative reconstruction technique). REFERENCE LINK: Post-i Lung-RADS COMPARISON: None. FINDINGS: PULMONARY NODULES: (Only nodules >3mm are reported) Nodules described below are on series unless otherwise specified. Pulmonary Nodules: None Hardware:None Lymph Nodes:Unremarkable Heart and Vasculature:No cardiomegalyAtherosclerotic calcifications of the thoracic aorta. Thoracic aorta and pulmonary arteries have normal contours; noncontrast technique limits evaluation. Coronary Artery Calcifications: Present Lungs and Airways: Mild emphysematous changes are present. Pleura:No pleural effusion Upper Abdomen:Unremarkable Bones:Unremarkable. CT/Low Dose CT Lung Screening IMPRESSION: No active disease. Coronary artery calcification (CAC) is is present Lung-RADS Category: 1 NEGATIVE. RECOMMEND 12-MONTH SCREENING LDCT. Other Significant Findings: None. Reading Location: [id number]
--- NOTE | 2024-08-01 15:07 | ECHOD_ITS ---
Reason For Study Reason For Study: MURMUR Procedure This was a 2D Doppler, Color Flow transthoracic echocardiogram. Exam performed in department. Left Ventricle Normal LV size. The left ventricular ejection fraction is 60 %. No regional wall motion abnormalities noted. Right Ventricle Normal RV size. Normal systolic function. Atria The left atrium is moderately enlarged. Normal right atrium. Mitral Valve Normal mitral valve. Tricuspid Valve Normal tricuspid valve. Mild (1+) tricuspid valve insufficiency. Pulmonary artery systolic pressure is 35 mmHg. Aortic Valve Trisinus/trileaflet aortic valve. Moderate focal aortic valve calcification. Peak aortic valve gradient 37 mmHg. Mean aortic valve gradient 21 mmHg. Mild to moderate aortic stenosis. Great Vessels Normal aortic root. The pulmonary artery is normal size. Inferior vena cava collapse with respiration. Pericardium/Pleural No pericardial effusion. MMode/2D Measurements & Calculations LVIDd: 5.4 cm IVSd: 1.1 cm LVOT diam: 2.3 cm LVIDs: 3.2 cm LVPWd: 1.1 cm LVOT area: 4.2 cm2 RVDd: 3.3 cm FS: 39.5 % Ao root diam: 4.0 cm LAV(MOD-bp): 95.8 ml LVAd ap4: 35.7 cm2 LAV(MOD-bp) Indexed: 44.1 ml/m2 LVLd ap4: 8.2 cm LAV(MOD-sp2): 83.4 ml EDV(MOD-sp4): 130.2 ml LAV(MOD-sp4): 95.4 ml EDV(sp4-el): 131.9 ml LVAs ap4: 19.2 cm2 LVLs ap4: 6.8 cm ESV(MOD-sp4): 47.7 ml ESV(sp4-el): 46.5 ml EF(MOD-sp4): 63.3 % EF(sp4-el): 64.8 % SV(MOD-sp4): 82.4 ml SV(MOD-sp2): 50.8 ml LVAd ap2: 27.3 cm2 LVLd ap2: 7.9 cm SI(MOD-sp4): 38.0 ml/m2 SI(MOD-sp2): 23.4 ml/m2 EDV(MOD-sp2): 86.4 ml EDV(sp2-el): 80.7 ml LVAs ap2: 14.9 cm2 LVLs ap2: 5.8 cm ESV(MOD-sp2): 35.6 ml ESV(sp2-el): 32.6 ml EF(MOD-sp2): 58.8 % SV(sp4-el): 85.4 ml Aortic Valve Planimetry: 1.4 cm2 LA A4 area: 25.9 cm2 LA dimension(2D): 4.7 cm TAPSE: 2.4 cm RA A4 area: 15.6 cm2 Time Measurements MV dec time: 0.26 sec Doppler Measurements & Calculations MV E max yefri: 69.2 cm/sec Lat Peak E' Yefri: 5.5 cm/sec Med Peak E' Yefri: 6.3 cm/sec MV A max yefri: 77.8 cm/sec E/E' lat: 12.6 E/E' med: 11.0 MV E/A: 0.89 MV V2 max: 82.0 cm/sec MV P1/2t max yefri: 73.3 cm/sec Ao V2 max: 305.7 cm/sec MV max P.7 mmHg MV P1/2t: 70.3 msec Ao max P.4 mmHg MV V2 mean: 42.2 cm/sec MV dec slope: 305.5 cm/sec2 Ao V2 mean: 220.3 cm/sec MV mean P.86 mmHg Ao mean P.5 mmHg MV V2 VTI: 26.3 cm MVA(P1/2t): 3.1 cm2 Ao V2 VTI: 68.0 cm MVA(VTI): 3.7 cm2 AV (velocity ratio): 0.33 LORETO(I,D): 1.4 cm2 LORETO(V,D): 1.3 cm2 LV V1 max: 91.8 cm/sec SV(LVOT): 96.6 ml PA V2 max: 114.3 cm/sec LV V1 max P.4 mmHg PA V2 mean: 79.2 cm/sec LV V1 mean P.0 mmHg LV V1 mean: 67.2 cm/sec LV V1 VTI: 22.7 cm TR max yefri: 285.9 cm/sec TR max P.7 mmHg ECHO/Echo Complete Interpretation Summary The left ventricular ejection fraction is 60 %. Normal LV size. Mean aortic valve gradient 21 mmHg. Mild to moderate aortic stenosis. The left atrium is moderately enlarged. Ordering Physician: Mili Talbert Referring Physician: Mili Talbert Performed By: Janki Smith, TIFF, RVT
== END 2024-08-01 23:59 | disposition home or self-care (01) ==
PROVIDERS: PCP Internal Medicine; Referring Provider Internal Medicine; Visit Provider Internal Medicine
DX: R01.1 Cardiac murmur, unspecified (principal); F17.201 Nicotine dependence, unspecified, in remission; I25.10 Atherosclerotic heart disease of native coronary artery without angina pectoris; I07.1 Rheumatic tricuspid insufficiency; I70.0 Atherosclerosis of aorta
CPT/HCPCS: 71271; 93306

== ENCOUNTER → 2024-11-06 | Outpatient (CLI) | payer BC, SELFPAY ==
--- NOTE | 2024-11-06 14:39 | CDU_ITS ---
Reason For Study Reason For Study: CAROTID BRUITS Rt. Velocities/BP Lt. Velocities/BP Prox CCA 59.1/7.2 cm/sec. Prox CCA 72.4/11.9 cm/sec. Mid CCA 74.3/12.8 cm/sec. Mid CCA 121.1/25.3 cm/sec. Dist CCA 74.3/13.8 cm/sec. Dist CCA 108.9/19.4 cm/sec. Prox ICA 54.8/9.8 cm/sec. Prox ICA 75.4/12.7 cm/sec. Mid ICA 45.0/9.8 cm/sec. Mid ICA 60.0/12.7 cm/sec. Dist ICA 65.8/21.9 cm/sec. Dist ICA 63.3/21.5 cm/sec. Rt. ICA/CCA = 65.3/74.3=0.9. Lt. ICA/CCA = 75.4/121.1=0.6. Prox ECA 95.2/5.1 cm/sec. Prox ECA 76.5/4.0 cm/sec. Rt. Vert. 42.4/8.3 cm/sec. Lt. Vert. 50.2/12.7 cm/sec. Right Extracranial There is homogeneous, smooth atherosclerotic plaque noted in the right common carotid artery. There is homogeneous, smooth atherosclerotic plaque noted in the right internal carotid artery. The atherosclerotic plaque causes acoustic shadowing. There is intimal thickening but no significant atherosclerotic plaque noted in the right external carotid artery. Antegrade flow is noted in the right vertebral artery. Left Extracranial There is homogeneous, smooth atherosclerotic plaque noted in the left common carotid artery. There is heterogeneous, irregular atherosclerotic plaque noted in the left internal carotid artery. There is intimal thickening but no significant atherosclerotic plaque noted in the left external carotid artery. Antegrade flow is noted in the left vertebral artery. Procedure Carotid Duplex [id number]. This is a Carotid Duplex examination using B-mode, color flow and specral Doppler. Exam performed in department. VL/Carotid Duplex Ultrasound Interpretation Summary Mild (<50%) stenosis right extracranial internal carotid. Mild (<50%) stenosis left extracranial internal carotid. Patent and antegrade vertebrals bilaterally. Ordering Physician: Mili Talbert Referring Physician: Mili Talbert Performed By: Janki Smith, TIFF, RVT
== END | disposition home or self-care (01) ==
LOC: CVS 14:39
PROVIDERS: PCP Internal Medicine; Referring Provider Internal Medicine; Visit Provider Internal Medicine
DX: R09.89 Other specified symptoms and signs involving the circulatory and respiratory systems (principal)
CPT/HCPCS: 93880

== ENCOUNTER → 2025-02-02 | Outpatient (CLI) | payer BC, SELFPAY ==
[2025-02-02 07:30] LABS: Mucous, Urine 0 SEEN /hpf (<or=2+); Red Blood Cells-Urine 0 SEEN /hpf (0-5); Squamous Epithelial Cells - UA 0 SEEN /hpf (0-5)
[2025-02-02 07:46] LABS: Hematocrit 45.3 % (40-54); Hemoglobin 15.7 g/dL (13.0-16.5); Immature Granulocytes Count 0.040 X10^3/uL (0.0-0.0); Mean Corp Hgb Conc 34.7 g/dL (32-36); Mean Corpuscular Volume 84.4 fL (80-94); Mean Platelet Vol. 9.1 fl (6.2-12.0); NRBC Flagged by Analyzer 0 % (0-5); Platelet Count 158 K/mm3 (150-450); RBC Distribution Width CV 13.2 % (11.6-14.6); RBC Distribution Width SD 40.5 fl (35.1-43.9); Red Blood Count 5.37 M/mm3 (4.6-6.2); White Blood Count 5.3 K/mm3 (4.4-11.0)
[2025-02-02 08:07] LABS: Creatinine, Urine (random) 47.90 mg/dL (39.00-259.00); Microalbumin,Random Urine < 12.0 mg/L (<20 mg/L)
[2025-02-02 08:25] LABS: AST(SGOT) 13 U/L (<=37); Alanine Aminotransfer ALT/SGPT 8 U/L (<=46); Albumin, Serum 4.1 g/dL (3.4-4.8); Alkaline Phosphatase 51 U/L (40-129); Anion Gap 9 (5-15); BUN 22 mg/dL (4-19); BUN/Creat Ratio 25.9 RATIO (10-20); Calcium,Total 9.3 mg/dL (7.6-11.0); Carbon Dioxide 26.1 mmol/L (21.0-32.0); Chloride 105 mmol/L (98-108); Cholesterol 219 mg/dL (<=200); Globulin 3.0 g/dL (2.2-4.2); Glucose 164 mg/dL (70-99); Low Density Lipoprotein Calc. 152 mg/dL; Potassium 4.1 mmol/L (3.3-5.1); Triglycerides 159 mg/dL; Very Low Density Lipoprotein 32 mg/dL (5-40); Vitamin D,25 Hydroxy 49.7 ng/mL (30-100); cholesterol:hdl ratio screen 5.75
[2025-02-02 08:47] LABS: Color, Urine Yellow (Yellow); Glucose, Dipstick 1000 mg/dl (Normal); Ketone-Dipstick Negative (Negative); Leukocyte Esterase-Dipstick Negative /ul (Negative); Nitrite-Dipstick Negative (Negative); Occult Blood-Urine 10 /ul (Negative); Protein-Dipstick Negative (Negative); Specific Gravity, Urine 1.015 (1.002-1.030); Urine Bilirubin Dipstick Negative (Negative)
[2025-02-02 11:15] LABS: Bilirubin, Direct 0.15 mg/dL (0.00-0.30)
== END | disposition home or self-care (01) ==
LOC: LAB 07:25
PROVIDERS: PCP Internal Medicine; Referring Provider Internal Medicine; Visit Provider Internal Medicine
DX: Z51.81 Encounter for therapeutic drug level monitoring (principal); E11.9 Type 2 diabetes mellitus without complications; E55.9 Vitamin D deficiency, unspecified
CPT/HCPCS: 36415; 80053; 80061; 81001; 82043; 82248; 82306; 82570; 84443; 85025